=== PATIENT | male | born 1965 | race Caucasian/White ===

== ENCOUNTER 2020-01-29 12:49 | Emergency (ER) | payer BC, SELFPAY ==
[2020-01-29 13:10] VITALS: BP 108/68; PULSE 66; RESP 16; TEMP 36.7; O2SAT 97
--- NOTE | 2020-01-29 13:24 | ED.URI ---
HPI - URI/Sore Throat General Chief Complaint: Upper Respiratory Infection Stated Complaint: Cough Source: patient Mode of arrival: ambulatory Limitations: no limitations History of Present Illness HPI Narrative: 54 y.o. c/o cough x 10 days. Initially coughing frequently. Cough has decreased, now mostly at night, keeping him awake. It's unproductive. He denies prolonged coughing, inspiratory whoop, or vomiting post coughing. No stridor. The cough is unproductive, not associated with SOB or wheezing. He has no hx of asthma. About 10 years ago Ernesto had episodes of coughing which were associated with his throat closing up and inability to breath for about 30 seconds followed by slowly regaining his ability to breath. This has not recently occurred put pt. is concerned about it. Wondering if he needs an X ray. Type 2 insulin dependent diabetes. B.S. have been higher recently, but less than 220. Related Data Home Medications Medication Instructions Recorded Confirmed insulin glargine U-300 conc 300 28 unit SUB-Q DAILY ml 11/08/19 01/29/20 unit/mL (1.5 mL) subcutaneous pen insulin glulisine U-100 100 5 unit SUB-Q .5XPERDAYWITHMEALS ml 11/08/19 01/29/20 unit/mL subcutaneous solution Allergies Allergy/AdvReac Type Severity Reaction Status Date / Time Penicillins Allergy Intermediate Unknown Verified 11/08/19 10:09 prednisone Allergy Intermediate Unknown Verified 11/08/19 10:09 Review of Systems Constitutional: Constitutional: Reports no additional constitutional complaints and Denies body ache(s) ENT: Denies sinus pain Cardiovascular: Cardiovascular: Denies chest pain Respiratory: Respiratory: Reports no additional respiratory complaints Gastrointestinal: Gastrointestinal: Reports no additional gastrointestinal complaints [facility] Past Medical History Medical History DM2 (diabetes mellitus, type 2) Surgical History Surgical History (Updated 11/08/19 @ 10:11 by Concha Velasquez) No history of previous surgery Family History Family History Father , Age 71 Leukemia Mother Lung cancer Social History Social History Smoking status: Never smoker Second hand tobacco smoke exposure: No Alcohol intake: never Exam Const: General: cooperative, no acute distress and other (Coughed <5 x while in the E.D. ) Nutritional Appearance: average body habitus and well nourished HENMT: General nose exam: Normal external nose present Face and sinus: sinuses nontender Mouth: Yes Normal oral and palatal mucosa present Throat: posterior oropharynx normal Neck: Neck: no lymphadenopathy Chest: Chest palpation & inspection: normal inspection of the chest Resp: Effort & Inspection: normal respiratory effort Auscultation: clear to auscultation bilaterally Course Course Emergency Course: URI discussed with pt. Pt encouraged to return if episodes of being unable to move air/ catch his breath. Vital Signs Vital signs: Vital Signs Temperature 36.7 C 01/29/20 13:10 Pulse Rate 66 01/29/20 13:10 Respiratory Rate 16 01/29/20 13:10 Blood Pressure 108/68 01/29/20 13:10 Pulse Oximetry 97 01/29/20 13:10 Temperature 36.7 C 01/29/20 13:10 Pulse Rate 66 01/29/20 13:10 Respiratory Rate 16 01/29/20 13:10 Blood Pressure 108/68 01/29/20 13:10 Pulse Oximetry 97 01/29/20 13:10 MDM - URI/Sore Throat MDM Narrative Medical decision making narrative: No typical symptoms of Pertussis. Will tx as viral bronchitis Differential Diagnosis Differential diagnosis: Likely bronchitis, influenza and other (gerd) Discharge Plan Discharge Clinical Impression: Bronchitis Patient Disposition: Home, Self-Care Condition: Stable Instructions: Acute Bronchitis (ED) Additional Instructions: See primary care c
== END 2020-01-29 13:54 | disposition home or self-care (01) ==
PROVIDERS: Emergency Provider Family Medicine
DX: J40 Bronchitis, not specified as acute or chronic (principal)
CPT/HCPCS: 99283

== ENCOUNTER → 2020-07-20 14:22 | Outpatient (CLI) | payer BC, SELFPAY ==
--- NOTE | ~2020-07-20 | MR_ITS ---
EXAMINATION: MR thoracic spine wo con DATE: 07/20/2020 15:34 INDICATION: Thoracic back pain. TECHNIQUE: Magnetic resonance imaging (MRI) of the thoracic spine was performed without intravenous c ontrast. Sagittal localizer T1-weighted FSE of the cervical spine was obtained. Thoracic spine sequen alec included sagittal T2-weighted FSE, sagittal T1-weighted FSE, sagittal STIR FSE, and axial T2-weig hted FSE. COMPARISON: None FINDINGS: Bone alignment is normal. There are Schmorl's nodes at multiple levels in lower thoracic sp ine. There is mildly decreased disc height from T6-T7 through T9-T10. At T5-T6, there is a right cent ral extrusion with mild central canal stenosis. At T6-T7, there is a right central extrusion with mil d central canal stenosis and ventral indentation of spinal cord. At T7-T8, there is a right central e xtrusion with mild central canal stenosis. At T9-T10, there is a central extrusion with mild central canal stenosis. At T11-T12, the disc is bulging with mild central canal stenosis. There is multilevel mild facet joint osteoarthritis. There is moderate right neural foraminal stenosis at T8-T9. The spi nal cord signal intensity is normal. There is a 5.8 cm cyst in right kidney. IMPRESSION: 1. Mild thoracic spondylosis. Reviewed, dictated and finalized at location A.
--- NOTE | ~2020-07-20 | MR_ITS ---
EXAMINATION: MR lumbar spine wo con DATE: 07/20/2020 15:40 INDICATION: Low back pain. TECHNIQUE: Magnetic resonance imaging (MRI) of the lumbar spine was performed without intravenous con trast. Sequences included sagittal T2-weighted FSE, sagittal T2-weighted FS FSE, sagittal T1-weighted FSE, and axial T2-weighted FSE. COMPARISON: None FINDINGS: There is 4 degrees levocurvature of lumbar spine. Vertebral body heights are normal. There is mildly decreased disc height at L2-L3. The distal spinal cord signal intensity is normal. The conu s medullaris is at T12-L1. There is a 5.8 cm cyst in right kidney. The following disc levels are spec ifically discussed: L1-L2: The disc does not extend beyond the endplate margin. There is mild bilateral facet joint osteo arthritis. There is no neural foraminal stenosis. There is no central canal stenosis. L2-L3: The disc is bulging. There is mild bilateral facet joint osteoarthritis. There is moderate rig ht and mild left neural foraminal stenosis. There is mild central canal stenosis. L3-L4: The disc is bulging. There is mild bilateral facet joint osteoarthritis. There is mild bilater al neural foraminal stenosis. There is mild central canal stenosis. L4-L5: The disc is bulging and has an annular fissure. There is mild bilateral facet joint osteoarthr itis. There is moderate bilateral neural foraminal stenosis. There is mild central canal stenosis. L5-S1: The disc is bulging and has an annular fissure. There is mild bilateral facet joint osteoarthr itis. There is mild bilateral neural foraminal stenosis. There is mild central canal stenosis. IMPRESSION: 1. Moderate lumbar spondylosis. Reviewed, dictated and finalized at location A.
== END ==
DX: M54.5 Low back pain (principal); M47.814 Spondylosis without myelopathy or radiculopathy, thoracic region; M47.816 Spondylosis without myelopathy or radiculopathy, lumbar region
CPT/HCPCS: 72146; 72148

== ENCOUNTER 2020-11-08 13:32 | Outpatient (CLI) | payer BC, SELFPAY ==
[2020-11-08 13:44] LABS: Basophils Absolute Auto 0.07 K/mm3 (0.00-0.10); Eosinophils Absolute Auto 0.17 K/mm3 (0.02-0.50); Eosinophils Percent Auto 2.5 % (1.0-6.0); Hematocrit 40.2 % (40.0-54.0); Hemoglobin 13.3 g/dL (14.0-18.0); Immature Granulocyte Absolute 0.02 K/mm3 (0.00-0.00); Immature Granulocyte Percent A 0.3 % (0.0-0.0); Lymphocytes Absolute Auto 1.59 K/mm3 (1.10-4.50); Lymphocytes Percent Auto 23.8 % (18.0-42.0); Mean Corpuscular HGB Conc 33.1 g/dL (32.0-36.0); Mean Corpuscular Hemoglobin 29.6 pg (27.0-31.0); Mean Corpuscular Volume 89.5 fL (78.0-102.0); Monocytes Percent Auto 7.5 % (2.0-11.0); Neutrophils Absolute Auto 4.3 K/mm3 (1.7-7.2); Neutrophils Percent Auto 64.9 % (50.0-70.0); Platelet Count Result 233 K/mm3 (150-420); Red Blood Count 4.49 M/mm3 (4.70-6.10); Red Cell Distribution Width 11.6 % (11.6-14.4); White Blood Count 6.7 K/mm3 (4.8-10.8)
== END 2020-11-08 13:33 | disposition home or self-care (01) ==
DX: R21 Rash and other nonspecific skin eruption (principal)
CPT/HCPCS: 36415; 85025

== ENCOUNTER 2020-12-18 08:51 | Outpatient (CLI) | payer BC, SELFPAY ==
[2020-12-18 10:24] LABS: Alanine Aminotransferase 28 U/L (16-63); Albumin Level 3.8 g/dL (3.4-5.0); Alkaline Phosphatase 59 U/L (46-116); Anion Gap 8 mmol/L (8-16); Aspartate Amino Transferase 20 U/L (15-37); Bilirubin,Total 0.5 mg/dL (0.00-1.00); Blood Urea Nitrogen 19 mg/dL (7-18); Calcium 8.6 mg/dL (8.5-10.1); Carbon Dioxide 30 mmol/L (21-32); Chloride 103 mmol/L (98-108); Cholesterol 301 mg/dL (0-200); Estimated Glomerular Filt Rate > 60; Free T4 Free Thyroxine 0.91 ng/dL (0.76-1.46); Glucose 132 mg/dL (70-99); HDL Direct 76 mg/dL (40-60); Iron 81 ug/dL (65-175); LDL Cholesterol Calculated 209 mg/dL (<130); Osmolality Calculated 296 mOsm/kg (285-295); Percent Iron Saturation 35 % (12-57); Potassium 4.3 mmol/L (3.5-5.1); Prostate Specific Antigen 0.8 ng/mL (< OR = 4.0); Sodium 141 mmol/L (136-145); Triglycerides 78 mg/dL (0-150); Vitamin B12 1170 pg/mL (193-986)
[2020-12-20 12:43] LABS: Vitamin D 25 Hydroxy 21 ng/mL (30-100)
[2020-12-20 21:27] LABS: Triiodothryronine T3 Uptake 31 % (22-35)
[2020-12-22 10:15] LABS: Testosterone Total 869 ng/dL (250-1100)
== END 2020-12-18 08:52 | disposition home or self-care (01) ==
LOC: CHSLAB 08:53
PROVIDERS: PCP Internal Medicine; Visit Provider Internal Medicine
DX: D64.9 Anemia, unspecified (principal); R53.83 Other fatigue; Z12.5 Encounter for screening for malignant neoplasm of prostate; E11.9 Type 2 diabetes mellitus without complications; Z13.21 Encounter for screening for nutritional disorder; E78.5 Hyperlipidemia, unspecified
CPT/HCPCS: 36415; 80053; 80061; 82306; 82607; 83540; 83550; 84153; 84403; 84439; 84443; 84479; G0103

== ENCOUNTER 2021-01-22 07:55 | Outpatient (CLI) | payer BC, SELFPAY ==
[2021-01-22 08:09] LABS: Basophils Absolute Auto 0.07 K/mm3 (0.00-0.10); Basophils Percent Auto 1.3 % (0.0-1.0); Eosinophils Percent Auto 3.7 % (1.0-6.0); Hematocrit 40.6 % (40.0-54.0); Hemoglobin 13.6 g/dL (14.0-18.0); Immature Granulocyte Absolute 0.01 K/mm3 (0.00-0.00); Immature Granulocyte Percent A 0.2 % (0.0-0.0); Lymphocytes Absolute Auto 1.04 K/mm3 (1.10-4.50); Lymphocytes Percent Auto 19.1 % (18.0-42.0); Mean Corpuscular HGB Conc 33.5 g/dL (32.0-36.0); Mean Corpuscular Hemoglobin 29.8 pg (27.0-31.0); Mean Platelet Volume 10.2 fl (8.7-11.0); Monocytes Absolute Auto 0.55 K/mm3 (0.10-0.90); Monocytes Percent Auto 10.1 % (2.0-11.0); Neutrophils Absolute Auto 3.6 K/mm3 (1.7-7.2); Neutrophils Percent Auto 65.6 % (50.0-70.0); Platelet Count Result 253 K/mm3 (150-420); Red Blood Count 4.56 M/mm3 (4.70-6.10); Red Cell Distribution Width 11.8 % (11.6-14.4); White Blood Count 5.4 K/mm3 (4.8-10.8)
[2021-01-22 09:07] LABS: Alanine Aminotransferase 28 U/L (16-63); Albumin Level 3.8 g/dL (3.4-5.0); Alkaline Phosphatase 60 U/L (46-116); Anion Gap 8 mmol/L (8-16); Aspartate Amino Transferase 19 U/L (15-37); Bilirubin,Total 0.6 mg/dL (0.00-1.00); Blood Urea Nitrogen 19 mg/dL (7-18); Calcium 9.1 mg/dL (8.5-10.1); Carbon Dioxide 29 mmol/L (21-32); Chloride 100 mmol/L (98-108); Estimated Glomerular Filt Rate 50; Ferritin 238 ng/mL (26-388); Folic Acid 11.3 ng/mL (8.6->20); Glucose 179 mg/dL (70-99); Iron 76 ug/dL (65-175); Lactate Dehydrogenase 162 U/L (85-227); Osmolality Calculated 290 mOsm/kg (285-295); Percent Iron Saturation 40 % (12-57); Potassium 4.3 mmol/L (3.5-5.1); Sodium 137 mmol/L (136-145); Vitamin B12 1258 pg/mL (193-986)
[2021-01-26 11:34] LABS: Methylmalonic Acid 169 nmol/L (87-318)
== END 2021-01-22 07:56 | disposition home or self-care (01) ==
LOC: CHSLAB 07:57
PROVIDERS: PCP Internal Medicine; Visit Provider Internal Medicine Hematology & Oncology
DX: D64.9 Anemia, unspecified (principal)
CPT/HCPCS: 36415; 80053; 82607; 82728; 82746; 83540; 83550; 83615; 83921; 85025

== ENCOUNTER 2021-03-14 08:45 | Outpatient (CLI) | payer BC, SELFPAY ==
[2021-03-14 12:46] LABS: Immunoglobulin A 501 mg/dL (70-400); Immunoglobulin G 1078 mg/dL (700-1600); Immunoglobulin M 48 mg/dL (40-230)
[2021-03-20 13:49] LABS: BCR/abl Prior Result Not Given
[2021-03-20 14:41] LABS: BCR/abl P190 Not Detected; BCR/abl P210 Not Detected
[2021-03-20 14:42] LABS: BCR/abl P190 Chg YES; BCR/abl P210 Chg YES
== END 2021-03-14 08:46 | disposition home or self-care (01) ==
PROVIDERS: PCP Internal Medicine; Visit Provider Internal Medicine Hematology & Oncology
DX: R74.8 Abnormal levels of other serum enzymes (principal); D72.824 Basophilia; D64.9 Anemia, unspecified
CPT/HCPCS: 36415; 81206; 81207; 82784; 88184

== ENCOUNTER 2021-04-02 17:21 | Outpatient (CLI) | payer BC, SELFPAY | END 2021-04-02 17:22 | disposition home or self-care (01) | LOC: CHSLAB 17:23 | PROVIDERS: Visit Provider Internal Medicine Hematology & Oncology | DX: D64.9 Anemia, unspecified (principal) | CPT/HCPCS: 36415; 82180 ==

== ENCOUNTER 2022-01-21 15:28 | Outpatient (CLI) | payer BC, SELFPAY ==
[2022-01-21 15:42] LABS: Basophils Absolute Auto 0.1 K/mm3 (0.0-0.1); Basophils Percent Auto 1.4 % (0.2-1.2); Eosinophils Absolute Auto 0.1 K/mm3 (0-0.3); Eosinophils Percent Auto 2.3 % (0-4.4); Hematocrit 42.2 % (42.0-52.0); Hemoglobin 13.6 g/dL (14.0-18.0); Immature Granulocyte Absolute 0.02 K/mm3 (0.00-0.031); Immature Granulocyte Percent A 0.4 % (0-0.5); Lymphocytes Absolute Auto 1.39 K/mm3 (0.9-3.2); Lymphocytes Percent Auto 24.8 % (18.3-44.2); Mean Corpuscular HGB Conc 32.2 g/dl (32-36); Mean Corpuscular Hemoglobin 29.9 pg (26-34); Mean Corpuscular Volume 92.7 fl (80-100); Mean Platelet Volume 9.9 fl (7.4-10.4); Monocytes Absolute Auto 0.5 K/mm3 (0.1-0.6); Monocytes Percent Auto 8.6 % (2.6-8.5); Neutrophils Absolute Auto 3.5 K/mm3 (1.3-6.7); Neutrophils Percent Auto 62.5 % (45.5-73.1); Platelet Count Result 271 k/mm3 (150-375); Red Blood Count 4.55 M/mm3 (4.6-6.20); Red Cell Distribution Width 11.9 % (11.5-14.5); White Blood Count 5.6 K/mm3 (4.5-10.0)
[2022-01-21 15:46] LABS: Blood Urea Nitrogen 21 mg/dL (8-26); Carbon Dioxide 31 mmol/L (22-30); Chloride 99 mmol/L (98-109); Estimated Glomerular Filt Rate 52; Glucose 156 mg/dL (70-105); Sodium 139 mmol/L (138-146)
[2022-01-21 17:00] LABS: Alanine Aminotransferase 22 U/L (4-50); Albumin Level 4.4 g/dL (3.5-5.1); Alkaline Phosphatase 67 U/L (38-126); Anion Gap 6 mmol/L (8-16); Aspartate Amino Transferase 33 U/L (17-59); Bilirubin,Total 0.4 mg/dL (0.2-1.3); Blood Urea Nitrogen 21 mg/dL (9-20); Calcium 9.1 mg/dL (8.4-10.2); Carbon Dioxide 29 mmol/L (22-30); Chloride 101 mmol/L (98-107); Estimated Glomerular Filt Rate > 60; Glucose 160 mg/dL (65-110); Sodium 136 mmol/L (137-145)
[2022-01-21 18:08] LABS: Folic Acid 8.1 ng/mL (2.76->20)
== END 2022-01-21 15:29 | disposition home or self-care (01) ==
LOC: ANHLAB 15:30
PROVIDERS: PCP Internal Medicine; Visit Provider Internal Medicine Hematology & Oncology
DX: D75.838 Other thrombocytosis (principal); K64.9 Unspecified hemorrhoids; R74.8 Abnormal levels of other serum enzymes
CPT/HCPCS: 36415; 80053; 82607; 82746; 85025

== ENCOUNTER 2022-01-23 08:11 | Outpatient (CLI) | payer BC, SELFPAY ==
[2022-01-23 09:25] LABS: Free T3 2.13 pg/mL (2.18-3.98); Free T4 Free Thyroxine 0.94 ng/dL (0.76-1.46); Thyroid Stimulating Hormone 1.04 uIU/mL (0.36-3.74)
[2022-01-27 13:42] LABS: Testosterone Free 100.5 pg/mL (35.0-155.0); Testosterone Total 723 ng/dL (250-1100)
== END 2022-01-23 08:12 | disposition home or self-care (01) ==
LOC: CHSLAB 08:16
PROVIDERS: PCP Internal Medicine; Visit Provider Internal Medicine Hematology & Oncology
DX: R53.83 Other fatigue (principal)
CPT/HCPCS: 36415; 84402; 84403; 84439; 84443; 84481

== ENCOUNTER 2022-05-29 09:52 | Emergency (ER) | payer BC, SELFPAY ==
[2022-05-29 10:05] VITALS: BP 117/73; PULSE 88; RESP 16; TEMP 36.6; O2SAT 97
--- NOTE | 2022-05-29 10:15 | PC.NURSE ---
during triage patient states he is here for cough syrup with codeine patient is educated that that is a controlled substance and that is doctors discretion on if he would prescribe medication or not. erp is notified of patients request.
--- NOTE | 2022-05-29 10:23 | ED.GENADULT ---
HPI - General Adult General Chief complaint: Upper Respiratory Infection Stated complaint: cough/unable to sleep History of Present Illness HPI narrative: This is a 60-year-old male with history of diabetes presents to ED with a cough and sore throat x1 week. Patient states the cough has been keeping him up at night and now he is not tired for work. The patient was brisk codeine 1 year ago for his cough he thought that was very effective. He is requesting that again today. He has tried multiple other qnon-amh-trzyvqk medications at home including Nyquil, Tylenol, and throat coat without relief. The patient denies systemic signs of illness this is fever, chills, nausea vomiting or diarrhea. He says that his blood glucose has been running higher since the illnesses started. He denies chest pain, difficulty breathing, productive cough or abdominal pain. The patient does not believe that any other medication besides ulcer with codeine will work. Related Data Home Medications Medication Instructions Recorded Confirmed insulin glulisine U-100 100 30 unit subcut .5XPERDAYWITHMEALS 12/11/20 05/29/22 unit/mL subcutaneous solution (Apidra U-100 Insulin) insulin lispro 100 unit/mL See Rx Instructions .Route .COMPLEX 05/29/22 05/29/22 subcutaneous pen (Humalog KwikPen (U-100) Insulin) Allergies Allergy/AdvReac Type Severity Reaction Status Date / Time Penicillins Allergy Intermediate Unknown Verified 05/29/22 10:10 prednisone Allergy Intermediate Unknown Verified 05/29/22 10:10 Review of Systems Constitutional: Constitutional: Denies fatigue Eyes: Eyes: Denies no additional eye complaints ENT: Reports sore throat Cardiovascular: Cardiovascular: Denies chest pain Respiratory: Respiratory: Reports cough Gastrointestinal: Gastrointestinal: Denies abdominal pain Genitourinary: Genitourinary: Denies hematuria Musculoskeletal: Musculoskeletal: Denies back pain Integumentary/Breasts: Skin/Breast: Denies rash Neurologic: Denies confusion Psychiatric: Psychiatric: Denies anxiety Endocrine: Endocrine: Reports fatigue Hematologic/Lymphatic: Hematologic/Lymphatic: Denies easy bleeding Allergic/Immunologic: Allergic/Immunologic: Denies throat swelling PMFSH Past Medical History Medical History Acute middle ear effusion Anemia Anxiety Dermatitis DM2 (diabetes mellitus, type 2) Fatigue Paresthesia of hand, bilateral Renal cyst Right shoulder pain Rotator cuff tendonitis Vitamin D deficiency Surgical History Surgical History No history of previous surgery Family History Family History Father , Age 71 Leukemia Mother Lung cancer Social History Social History Smoking status: Never smoker Second hand tobacco smoke exposure: No Alcohol intake: never Exam Const: General: healthy appearing, no acute distress and alert HENMT: Ears: TM's normal bilaterally General nose exam: Normal nares present Face and sinus: sinuses nontender Mouth: Yes Normal oral and palatal mucosa present Throat: posterior oropharynx normal Other: No evidence of erythema posterior pharynx. No exudates. Eyes: Conjunctivae: conjunctivae normal Neck: Neck: normal visual inspection Chest: Chest palpation & inspection: normal inspection of the chest Resp: Effort & Inspection: normal respiratory effort, not labored, no retractions, not tachypneic and no use of accessory muscles Auscultation: clear to auscultation bilaterally Cardio: Rate: regular rate GI: GI Palp: Yes Soft to palpation, No Tenderness to palpation present (GI) and No Guarding due to palpation present (GI) Skin: General skin exam: normal color Neuro: General: patient oriented x3 and moves all extremitie
--- NOTE | 2022-05-29 10:27 | PC.NURSE ---
patient refused blood glucose check, erp made aware
[2022-05-29 10:50] VITALS: BP 117/73; PULSE 88; RESP 16; TEMP 36.6; O2SAT 97
== END 2022-05-29 10:54 | disposition home or self-care (01) ==
PROVIDERS: Emergency Provider Emergency Medicine; PCP Internal Medicine
DX: R05.9 Cough, unspecified (principal); J06.9 Acute upper respiratory infection, unspecified; E11.9 Type 2 diabetes mellitus without complications; E55.9 Vitamin D deficiency, unspecified; F41.9 Anxiety disorder, unspecified
CPT/HCPCS: 99283

== ENCOUNTER → 2022-06-05 15:06 | Outpatient (CLI) | payer BC, SELFPAY ==
--- NOTE | ~2022-06-05 | XR_ITS ---
EXAMINATION: XR chest 2V 06/05/2022 15:57 INDICATION: Chronic cough PROCEDURE: 2 view chest COMPARISON: 04/23/2007 FINDINGS: The lungs are clear. The cardiomediastinal silhouette is within normal limits. There are no pleural effusions. There is no pneumothorax suspected. IMPRESSION: 1: NO ACUTE CARDIOPULMONARY DISEASE. Reviewed, dictated and finalized at location A.
== END ==
PROVIDERS: PCP Internal Medicine; Visit Provider Nurse Practitioner
DX: R05.3 Chronic cough (principal)
CPT/HCPCS: 71046

== ENCOUNTER → 2022-08-29 10:15 | Outpatient (CLI) | payer BC, SELFPAY ==
--- NOTE | ~2022-08-29 | MR_ITS ---
EXAMINATION: MR cervical spine wo con DATE: 08/29/2022 10:58 INDICATION: Neck pain. TECHNIQUE: Magnetic resonance imaging (MRI) of the cervical spine was performed without intravenous c ontrast. Sequences included sagittal T2-weighted FSE, sagittal T2-weighted FS FSE, sagittal T1-weight ed FSE, axial MERGE, and axial T2-weighted FSE. COMPARISON: None FINDINGS: There is 5 degrees dextrocurvature of cervical spine. Vertebral body heights are normal. Th ere is mildly decreased disc height at C4-C5 and C5-C6 and severely decreased disc height at C6-C7. T he spinal cord signal intensity is normal. The following disc levels are specifically discussed: C2-C3: The disc does not extend beyond the endplate margin. There is mild bilateral uncovertebral sharon nt osteoarthritis. There is mild bilateral facet joint osteoarthritis. There is mild left neural fora frieda stenosis. There is no central canal stenosis. C3-C4: The disc does not extend beyond the endplate margin. There is mild right and moderate left unc overtebral joint osteoarthritis. There is mild bilateral facet joint osteoarthritis. There is mild bi lateral neural foraminal stenosis. There is no central canal stenosis. C4-C5: The disc is bulging. There is moderate bilateral uncovertebral joint osteoarthritis. There is moderate right and mild left facet joint osteoarthritis. There is moderate right and mild left neural foraminal stenosis. There is mild central canal stenosis. C5-C6: The disc is bulging. There is severe bilateral uncovertebral joint osteoarthritis. There is se nette right and moderate left facet joint osteoarthritis. There is mild bilateral neural foraminal venkat nosis. There is mild central canal stenosis. C6-C7: The disc is bulging. There is severe bilateral uncovertebral joint osteoarthritis. There is mi ld bilateral facet joint osteoarthritis. There is mild bilateral neural foraminal stenosis. There is no central canal stenosis. C7-T1: The disc does not extend beyond the endplate margin. There is mild bilateral uncovertebral sharon nt osteoarthritis. There is mild bilateral facet joint osteoarthritis. There is no neural foraminal s tenosis. There is no central canal stenosis. IMPRESSION: 1. Severe cervical spondylosis. Reviewed, dictated and finalized at location A.
== END ==
PROVIDERS: PCP Internal Medicine; Visit Provider Nurse Practitioner Family
DX: M47.892 Other spondylosis, cervical region (principal)
CPT/HCPCS: 72141

== ENCOUNTER 2022-10-18 09:34 | Outpatient (CLI) | payer BC, SELFPAY ==
[2022-10-18 10:39] LABS: Alanine Aminotransferase 37 U/L (16-63); Albumin Level 3.6 g/dL (3.4-5.0); Alkaline Phosphatase 68 U/L (46-116); Anion Gap 8 mmol/L (8-16); Aspartate Amino Transferase 19 U/L (15-37); Bilirubin,Total 0.5 mg/dL (0.00-1.00); Blood Urea Nitrogen 21 mg/dL (7-18); Calcium 8.7 mg/dL (8.5-10.1); Carbon Dioxide 29 mmol/L (21-32); Chloride 104 mmol/L (98-108); Cholesterol 133 mg/dL (0-200); Estimated Glomerular Filt Rate 57; Glucose 168 mg/dL (70-99); HDL Direct 51 mg/dL (40-60); LDL Cholesterol Calculated 68 mg/dL (<130); Osmolality Calculated 299 mOsm/kg (285-295); Potassium 4.3 mmol/L (3.5-5.1); Sodium 141 mmol/L (136-145); Thyroid Stimulating Hormone 0.83 uIU/mL (0.36-3.74); Total Protein 6.6 g/dL (6.4-8.2); Triglycerides 72 mg/dL (0-150)
[2022-10-22 18:11] LABS: Vitamin D 25 Hydroxy 45 ng/mL (30-100)
== END 2022-10-18 09:35 | disposition home or self-care (01) ==
LOC: CHSLAB 09:36
PROVIDERS: PCP Internal Medicine; Visit Provider Internal Medicine Endocrinology, Diabetes & Metabolism
DX: E10.65 Type 1 diabetes mellitus with hyperglycemia (principal)
CPT/HCPCS: 36415; 80053; 80061; 82306; 84443

== ENCOUNTER 2023-07-06 16:39 | Outpatient (CLI) | payer BC, SELFPAY ==
--- NOTE | ~2023-07-06 | MR_ITS ---
EXAMINATION: MR shoulder RT wo con DATE: 07/06/2023 17:31 INDICATION: Right shoulder pain. TECHNIQUE: Magnetic resonance imaging (MRI) of the right shoulder was performed without intravenous c ontrast. Sequences included axial PD-weighted FS FSE, coronal oblique PD-weighted FS FSE and T2-weigh [place] FS FSE, and sagittal oblique T2-weighted FS FSE and T1-weighted FSE. COMPARISON: Right shoulder radiographs 06/24/2023 FINDINGS: Coracoacromial arch: The acromion undersurface is curved in morphology (type II). There is severe acromioclavicular joint osteoarthritic including inferiorly directed osteophytes. There is mild subacromial/subdeltoid bursit is. Rotator cuff: There is mild supraspinatus and infraspinatus tendinopathy. There is mild teres minor tendinopathy. T here is mild subscapularis tendinopathy. No tear. There is no asymmetric fatty atrophy of the rotator cuff muscle bellies. Biceps tendon and glenoid labrum: Biceps tendon is in bicipital groove. Intra-articular biceps tendon is normal. The glenoid labrum is intact. Fluid: There is a small glenohumeral joint effusion. Bones/cartilage: Glenoid cartilage is normal. Humeral head cartilage is normal. IMPRESSION: 1. Mild rotator cuff tendinopathy. No tear. 2. Severe acromioclavicular joint osteoarthritis. 3. Mild subacromial/subdeltoid bursitis. 4. Small glenohumeral joint effusion. Reviewed, dictated and finalized at location A.
== END 2023-07-06 16:40 | disposition home or self-care (01) ==
LOC: ANHIMG 16:42
PROVIDERS: PCP Family Medicine; Visit Provider Orthopaedic Surgery
DX: M19.011 Primary osteoarthritis, right shoulder (principal); M25.411 Effusion, right shoulder; M75.51 Bursitis of right shoulder
CPT/HCPCS: 73221

== ENCOUNTER 2024-08-16 10:08 | Outpatient (CLI) | payer BC, SELFPAY ==
[2024-08-16 10:38] LABS: Hematocrit 41.5 % (40.0-54.0); Mean Corpuscular HGB Conc 33.7 g/dL (32-36); Mean Corpuscular Hemoglobin 30.3 pg (27.0-31.0); Mean Corpuscular Volume 89.8 fL (78.0-102.0); Mean Platelet Volume 10.2 fl (8.7-11.0); Platelet Count Result 238 K/mm3 (150-420); Red Blood Count 4.62 M/mm3 (4.70-6.10); Red Cell Distribution Width 11.9 % (11.6-14.4)
[2024-08-16 10:46] LABS: Add Urine Microscopic? NO; Appearance Urine Clear (Clear); Bilirubin Urine Negative (Negative); Blood Urine Negative (Negative); Color Urine Light Yellow (Yellow); Glucose Urine UA Negative (Negative); Ketones Urine Negative (Negative); Leukocyte Esterase Ur Negative (Negative); Nitrate Urine Negative (Negative); Protein Urine Negative (Negative); Specific Grav Ur 1.015 (1.010-1.020); Urobilinogen Urine 0.2 mg/dL (0.2-1.0)
[2024-08-16 10:49] LABS: Hemoglobin A1C 7.4 % (<5.7)
[2024-08-16 10:55] LABS: Creatinine Urine 107.13 mg/dL (40-278); MALB Creatinine Ratio 12.1 mg/g (0-30); Microalbumin Urine Random < 13.0 mg/L
[2024-08-16 11:48] LABS: Alanine Aminotransferase 28 U/L (16-63); Albumin Level 3.8 g/dL (3.4-5.0); Alkaline Phosphatase 67 U/L (46-116); Anion Gap 4 mmol/L (4-12); Aspartate Amino Transferase 17 U/L (15-37); Bilirubin,Total 0.6 mg/dL (0.00-1.00); Blood Urea Nitrogen 20 mg/dL (7-18); Calcium 9.2 mg/dL (8.5-10.1); Carbon Dioxide 31 mmol/L (21-32); Chloride 103 mmol/L (98-108); Cholesterol 249 mg/dL (0-200); Estimated Glomerular Filt Rate > 60; Ferritin 259 ng/mL (26-388); Free T3 2.58 pg/mL (2.18-3.98); Free T4 Free Thyroxine 0.91 ng/dL (0.76-1.46); Glucose 142 mg/dL (70-99); HDL Direct 77 mg/dL (40-60); Iron 76 ug/dL (65-175); LDL Cholesterol Calculated 158 mg/dL (<130); Osmolality Calculated 290 mOsm/kg (285-295); Percent Iron Saturation 33 % (12-57); Potassium 4.6 mmol/L (3.5-5.1); Prostate Specific Antigen 0.9 ng/mL (< OR = 4.0); Sodium 138 mmol/L (136-145); Thyroid Stimulating Hormone 0.99 uIU/mL (0.36-3.74); Total Protein 7.2 g/dL (6.4-8.2); Triglycerides 69 mg/dL (0-150); Vitamin B12 970 pg/mL (193-986)
[2024-08-16 11:49] LABS: CRP < 0.5 mg/dL (0.0-0.9)
[2024-08-17 15:49] LABS: Parathyroid Intact 27 pg/mL (16-77)
[2024-08-18 08:08] LABS: Vitamin D 25 Hydroxy 34 ng/mL (30-100)
[2024-08-18 20:04] LABS: Red Blood Cell Folate 608 ng/mL RBC (>280)
[2024-08-19 16:03] LABS: Anti Cyclic Citrullinated Pept <16 UNITS
[2024-08-20 12:57] LABS: Methylmalonic Acid 148 nmol/L (69-390)
[2024-08-20 14:49] LABS: Vitamin D 1,25 (OH)2 Total 26 pg/mL (18-72); Vitamin D2 1,25 (OH)2 <8 pg/mL; Vitamin D3 1,25 (OH)2 26 pg/mL
[2024-08-24 20:04] LABS: Glutamic acid decarboxylase AA 6 IU/mL (<5)
== END 2024-08-16 10:09 | disposition home or self-care (01) ==
PROVIDERS: PCP Internal Medicine; Visit Provider Internal Medicine
DX: Z00.00 Encounter for general adult medical examination without abnormal findings (principal); E11.9 Type 2 diabetes mellitus without complications; D64.9 Anemia, unspecified; M25.50 Pain in unspecified joint; E55.9 Vitamin D deficiency, unspecified
CPT/HCPCS: 36415; 80053; 80061; 81003; 82043; 82306; 82607; 82652; 82728; 82747; 83036; 83540; 83550; 83921; 83970; 84153; 84439; 84443; 84481; 85027; 86038; 86039; 86140; 86200; G0103

== ENCOUNTER 2025-07-03 15:07 | Outpatient (CLI) | payer BC, SELFPAY ==
--- NOTE | ~2025-07-03 | XR_ITS ---
CHEST RADIOGRAPH, PA AND LATERAL CLINICAL HISTORY: dyspnea of exertion . COMPARISON: 06/05/2022 TECHNIQUE: PA and lateral views of the chest. FINDINGS The cardiomediastinal silhouette is unremarkable. The lungs are clear. IMPRESSION: No focal infiltrate or effusion. Reviewed, dictated and finalized at location A.
[2025-07-03 15:32] LABS: Add Urine Microscopic? NO; Appearance Urine Clear (Clear); Glucose Urine UA Negative (Negative); Hematocrit 37.0 % (40.0-54.0); Hemoglobin 12.4 g/dL (14.0-18.0); Leukocyte Esterase Ur Negative (Negative); Mean Corpuscular HGB Conc 33.5 g/dL (32-36); Mean Corpuscular Hemoglobin 30.0 pg (27.0-31.0); Mean Corpuscular Volume 89.4 fL (78.0-102.0); Nitrate Urine Negative (Negative); Platelet Count Result 244 K/mm3 (150-420); Red Blood Count 4.14 M/mm3 (4.70-6.10); Specific Grav Ur 1.025 (1.010-1.020); White Blood Count 6.8 K/mm3 (4.8-10.8)
--- NOTE | 2025-07-03 15:36 | ECG_ITS ---
Test Date: 2025-07-03 15:45:48 Measurements Intervals [place] Rate: 61 P: -18 [place]: 200 QRS: 3 QRSD: 74 T: 6 QT: 371 QTc: 376 Interpretive Statements SINUS RHYTHM INFERIOR INFARCT, AGE INDETERMINATE BASELINE ARTIFACT- II, III, AVF ABNORMAL ECG No previous ECG available for comparison Electronically Signed On 07-03-2025 16:37:14 CDT by Nehemias Collins D.O.
[2025-07-03 15:40] LABS: Alanine Aminotransferase 25 U/L (6-50); Albumin Level 4.4 g/dL (3.5-5.1); Alkaline Phosphatase 73 U/L (38-126); Anion Gap 8 mmol/L (4-12); Aspartate Amino Transferase 38 U/L (17-59); Bilirubin,Total 0.5 mg/dL (0.2-1.3); Blood Urea Nitrogen 27 mg/dL (9-20); CRP 0.6 mg/dL (<1.0); Calcium 9.6 mg/dL (8.4-10.2); Carbon Dioxide 24 mmol/L (22-30); Chloride 106 mmol/L (98-107); Estimated Glomerular Filt Rate 48; Glucose 208 mg/dL (65-110); Osmolality Calculated 297 mOsm/kg (285-295); Potassium 4.2 mmol/L (3.4-5.0); Sodium 138 mmol/L (137-145); Total Protein 7.3 g/dL (6.3-8.2)
[2025-07-03 15:46] LABS: NT Pro B Type Natriuretic Pept 67 pg/mL (19.9-100)
--- OUTSIDE RECORDS SUMMARY | 2025-07-03 15:58 | XMS_ITS | Encounter Summary ---
Author Organization [facility] Address [address] [place] [address] Care Team Providers Care School Guidance Counselor Name Role Phone Domo Tello DO Primary Care Provider [phone] Encounter Details Date Type Department Care Team (Latest Contact Info) Description 09/03/2006 Outpatient Historical HIS [facility] [place] [facility] Godfrey, Bonilla Medellin MD NO ADDRESS ON FILE DM w/o Complication Type I, Uncontrolled (Primary Dx) Social History Tobacco Use Types Packs/Day Years Used Date Smoking Tobacco: Never Assessed Sex and Gender Information Value Date Recorded Sex Assigned at Not on file 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 Gender Identity Not on file Sexual Orientation Not on file documented as of this encounter Plan of Treatment Not on file documented as of this encounter Procedures Procedure Name Priority Date/Time Associated Diagnosis Comments HEMOGLOBIN A1C Routine 09/03/2006 8:27 AM CDT documented in this encounter Results * (ABNORMAL) HEMOGLOBIN A1C (09/03/2006 8:27 AM CDT) HEMOGLOBIN A1C 6.6(H) 4.1 - 6.1 % of Hgb INTERFACE SYSTEM GLUCOSE, MEAN BLOOD 134 mg/dL INTERFACE SYSTEM 09/03/2006 8:27 AM CDT us Bonilla Godfrey MD CHEMISTRY ORDERABLES Final Resu lt INTERFACE SYSTEM Refer to clinic/hospital department documented in this encounter Visit Diagnoses Diagnosis Type I (juvenile type) diabetes mellitus without mention of complication, uncontrolled- Primary documented in this encounter Care Teams School Guidance Counselor Relationship Specialty Start Date End Date Domo Tello DO [address] [facility] [address] [facility] [address] [place] [address] PCP - General Internal Medicine 01/16/21 documented as of this encounter
--- OUTSIDE RECORDS SUMMARY | 2025-07-03 15:58 | XMS_ITS | Clinical Summary ---
Author Organization [facility] Address [address] [place] [address] Care Team Providers Care Churner Name Role Phone Dev Sage MD Primary Care Provider Source Comments [facility],non-owned Affiliates and Associated Physician Practices is amultiple site organization consisting of ambulatory clinics and hospital sitesin [place], [place], [place] and [place]. This disclosure is being madepursuant to the Care Everywhere program and may not contain all information available regarding this patient. Last updated 18.[facility] Allergies Active Allergy Reactions Criticality Noted Date Comments Penicillins Other,Rash Medium 08/26/2016 Reaction: Unknown, Prednisone Unknown 05/21/2020 Medications * Be aware that medications may not be up to date on this document. Alwaysverify current medications with the patient. 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 Gender Identity Not on file Sexual Orientation Not on file Last Filed Vital Signs Vital Sign Reading Time Taken Comments Blood Pressure 121/70 05/21/2020 2:15 PM CDT Pulse 73 05/21/2020 2:15 PM CDT Temperature - - Respiratory Rate - - Oxygen Saturation - - Inhaled Oxygen Concentration - - Weight 83.9 kg (185 lb) 05/21/2020 2:15 PM CDT Height 177.8 cm (5' 10) 05/21/2020 2:15 PM CDT Body Mass Index 26.54 05/21/2020 2:15 PM CDT Plan of Treatment Health Maintenance Due Date Last Done Comments COLOGUARD (AGES 45-75) - COL ON CA SCREENING 1963 COLON MONITORING 1963 COLONOSCOPY - COLON CA SCREENING 1963 CT COLONOGRAPHY - COLON CA SCREENING 1963 Colorectal Cancer Screening 1963 FIT - COLON CA SCREENING 1963 FLEX SIG - COLON CA SCREENING 1963 LIPID TESTING 1963 HIV SCREENING 1978 HEPATITIS C SCREENING 10/16/1981 DTAP/TDAP/TD VACCINES (1 - Tdap) 1982 PNEUMOCOCCAL VACCINE 50+ (1 of 1 - PCV) 2013 ZOSTER VACCINE (1 of 2) 2013 SCREENING FOR DIABETES 05/21/2020 COVID-19 VACCINE (1 - 2023-2 5 season) 2024 DEPRESSION SCREENING 11/16/2024 INFLUENZA VACCINE (#1) 2025 Respiratory Syncytial Virus (RSV) Vaccine Pt: or over 60 yrs (1 - 1-dose 75+ series) 2038 HEPATITIS B VACCINE Aged Out No longe r eligible based on patient's age to complete this topic HIB VACCINE Aged Out No longer eligi ble based on patient's age to complete this topic HPV VACCINE Aged Out No longer eligi ble based on patient's age to complete this topic MENINGOCOCCAL (Group B) VACC INE SHARED DECISION-MAKING Aged Out No longer eligibl e based on patient's age to complete this topic MENINGOCOCCAL GROUPS A/C/Y/W VACCINE Aged Out No longer eligible b ased on patient's age to complete this topic Insurance [employer] Care Teams Churner Relationship Specialty Start Date End Date Dev Sage MD [address] [place] [place] [address] PCP - General 05/17/20
--- OUTSIDE RECORDS SUMMARY | 2025-07-03 15:58 | XMS_ITS | Encounter Summary ---
Author Organization [employer] Address 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 Gender Identity Not on file Sexual Orientation Not on file documented as of this encounter Plan of Treatment Not on file documented as of this encounter Procedures Procedure Name Priority Date/Time Associated Diagnosis Comments CT ABDOMEN PELVIS W CONTRAST Routine 02/21/2008 8:06 PM CDT URINALYSIS W/REFLEX MICROSCOPIC Stat 02/21/2008 7:25 PM CDT CBC WITH DIFFERENTIAL Stat 02/21/2008 6:45 PM CDT C-REACTIVE PROTEIN Stat 02/21/2008 6: 45 PM CDT COMPREHENSIVE METABOLIC PANEL Stat 02/21/2008 6:45 PM CDT documented in this encounter Results * CT ABDOMEN PELVIS W CONTRAST (02/21/2008 8:06 PM CDT) Anatomical Region Laterality Modality Abdomen Other 02/21/2008 8:06 PM CDT Narrative 02/22/2008 9:37 AM CDT [facility] [address] [place], [place] [address] Admit Date: 02/21/2008 MAIN GAUTHIER Sex: M Admit Prov: ER, AUTHORIZED P Date: 1965 Primary Care Prov: ELIZ BOOTH CMRN: [id number] Room: ER-A SSN: [id number] IMAGING SERVICES Ordering Prov: N/A Accession Number: [id number] Interpretation CT ABDOMEN AND PELVIS WITH IV CONTRAST 02/21/2008 History: 42-year-old man with right lower quadrant abdominal pain Technique: Helical imaging of the abdomen and pelvis with intravenous contrast Comparisons: None Findings: Images through the lung bases demonstrate a 4 mm pulmonary nodule within the lingula anteriorly (image 1, series 2). The liver is unremarkable in appearance without intrahepatic biliary ductal dilatation. The gallbladder is present. There is a calcified pulmonary nodule in the left lower lobe. The spleen, pancreas and adrenal glands are unremarkable. Both kidneys enhance symmetrically and there is no hydronephrosis. There is a 3.9 x 3.8 cm low density lesion exophytically arising from the upper pole of the right kidney, most compatible with a cyst. No pathologically enlarged upper abdominal or retroperitoneal lymph nodes are seen. There is no pelvic lymphadenopathy. The appendix is unremarkable. There are a slightly increased number of mesenteric lymph nodes which is nonspecific. Impression: 1. No acute intra-abdominal/pelvic process identified 2. Slightly increased number of mesenteric lymph nodes, nonspecific. Consider follow up. 3. Right renal cyst. 4. 4 mm pulmonary nodule within the lingula anteriorly . Dictated by: MIROSLAVA PISANO 02/21/2008 20:45 Electronically signed by: MIROSLAVA PISANO 02/22/2008 09:37 Transcribed: 02/21/2008 20:54 AMK Procedure Note Provider, Historical - 02/22/2008 [place] [id number] [place], [place] [address] Admit Date: 02/21/2008 MAIN GAUTHIER Sex: M Admit Prov: ERIKA GOLDEN Date: 1965 Primary Care Prov: ELIZ BOOTH CMRN: [id number] Room: [facility] SSN: [id number] IMAGING SERVICES Ordering Prov: N/A Interpretation CT ABDOMEN AND PELVIS WITH IV CONTRAST 02/21/2008 History: 42-year-old man with right lower quadrant abdominal pain Technique: Helical imaging of the abdomen and pelvis withintravenous contrast Comparisons: None Findings: Images through the lung bases demonstrate a 4 mm pulmonarynodule within the lingula anteriorly (image 1, series 2). The liver is unremarkable in appearance without intrahepatic biliaryductal dilatation. The gallbladder is present. There is a calcifiedpulmonary nodule in the left lower lobe. The spleen, pancreas and adrenalglands are unremarkable. Both kidneys enhance symmetrically and there is no hydronephrosis. There is a 3.9 x 3.8 cm low density lesionexophytically arising from the upper pole of the right kidney, most compatible witha cyst. No pathologically enlarged upper abdominal or retroperitoneallymph nodes are seen. There is no pelvic lymphadenopathy. The appendix is unremarkable. There are a slightly increased number of mesentericlymph nodes which is nonspecific. Impression: 1. No acute intra-abdominal/pelvic process identified 2. Slightly increased number of mesenteric lymph nodes,nonspecific. Consider follow up. 3. Right renal cyst. 4. 4 mm pulmonary nodule within the lingula anteriorly . Dictated by: MIROSLAVA PISANO 02/21/2008 20:45 Electronically signed by: MIROSLAVA PISANO 02/22/2008 09:37 Transcribed: 02/21/2008 20:54 AMK Rav[address] DO [address] ORDERABLES Final Result * URINALYSIS (02/21/2008 7:25 PM CDT) CLARITY UA Clear Clear [facility] PROTEIN UA Negative Negative [facility] BILIRUBIN UA Negative Negative [facility] LEUKOCYTE ESTERASE UA Negative Negative [facility] SPECIFIC GRAVITY UA 1.005 1.001 - 1.035 [facility] BLOOD UA Negative Negative [facility] GLUCOSE UA Negative Negative [facility] COLOR UA Colorless [facility] NITRITE UA Negative Negative [facility] UROBILINOGEN UA <1 <=1 mg/dL [facility] PH UA 6.0 5.0 - 8.0 [facility] KETONES UA Negative Negative [facility] Urine specimen (specimen) 02/21/2008 7:25 PM CDT 02/21/2008 7:29 PM CDT Ravinder Knott DO URINE ORDERABLES Final Result Performing Organization Address [facility] Co de Phone Number [facility] [address] [facility] [address] [place], [place] [address] * C-REACTIVE PROTEIN (02/21/2008 6:45 PM CDT) Pathologist [facility] CRP 0.3 0.0 - 0.8 mg/dL [facility] Blood specimen (specimen) 02/21/2008 6:45 PM CDT 02/21/2008 6:51 PM CDT Ravinder Knott DO CHEMISTRY ORDERABLES Final Re sult Performing Organization Address [facility]/ZIP Co de Phone Number [facility] [address] [facility] [place] [address] * (ABNORMAL) COMPREHENSIVE METABOLIC PANEL (02/21/2008 6:45 PM CDT) ALKALINE PHOSPHATASE 65 40 - 129 U/L [facility] CO2 27 22 - 30 mmol/L [facility] BILIRUBIN TOTAL 0.3 0.2 - 1.0 mg/dL [facility] POTASSIUM 3.7 3.5 - 4.9 mmol/L [facility] TOTAL PROTEIN 7.8 6.3 - 8.6 g/dL [facility] GLUCOSE 117(H) 65 - 99 mg/dL [facility] AST 36 12 - 38 U/L [facility] BUN 17 6 - 20 mg/dL [facility] CALCIUM 8.9 8.4 - 10.2 mg/dL [facility] ALBUMIN 4.6 3.4 - 4.8 g/dL [facility] CHLORIDE 102 96 - 108 mmol/L [facility] CREATININE 1.13 0.67 - 1.17 mg/dL [facility] ALT 27 0 - 41 U/L [facility] SODIUM 140 135 - 145 mmol/L [facility] GFR, >60 >=60 mL/min/1. 7 sq meter [facility] GFR >60 >=60 mL/min/1. 7 sq meter [facility] Comment: Estimated GFR rate interpretative information for both Americans and non- Americans is available on the [facility] Intranet at: [email or web address] Select: Lab Policies and Procedures Select: Reference Ranges - GFR Blood specimen (specimen) 02/21/2008 6:45 PM CDT 02/21/2008 6:51 PM CDT us Ravinder Knott DO CHEMISTRY ORDERABLES Edited [facility] [address] [place] [address] * CBC WITH DIFFERENTIAL (02/21/2008 6:45 PM CDT) HEMOGLOBIN 14.1 13.6 - 16.5 g/dL [facility] RDW 12.3 11.5 - 14.5 % [facility] WBC 6.0 4.0 - 9.8 K/uL [facility] MCH 28.5 27.2 - 32.6 pg [facility] MPV 10.2 9.3 - 12.4 fL [facility] HEMATOCRIT 41.7 40.0 - 48.0 % [facility] RDW-STDEV 37.7 37.1 - 48.7 fL [facility] RBC 4.94 4.50 - 5.40 M/uL [facility] MCHC 33.8 31.5 - 35.5 % [facility] MCV 84.4 82.0 - 99.0 fL [facility] PLATELETS 255 140 - 350 K/uL [facility] LYMPHOCYTES 31 16 - 45 % [facility] LYMPHOCYTE ABSOLUTE 1.84 0.70 - 4.50 K/uL [facility] EOSINOPHIL ABSOLUTE 0.16 0.00 - 0.70 K/uL [facility] BASOPHILS 2 0 - 2 % [facility] MONOCYTES 6 3 - 13 % [facility] NEUTROPHILS 59 45 - 70 % [facility] NEUTROPHIL ABSOLUTE 3.51 1.90 - 7.00 K/uL [facility] EOSINOPHILS 3 0 - 7 % [facility] MONOCYTE ABSOLUTE 0.37 0.10 - 1.30 K/uL [facility] BASOPHILS ABSOLUTE 0.09 0.00 - 0.20 K/uL [facility] Blood specimen (specimen) 02/21/2008 6:45 PM CDT 02/21/2008 6:51 PM CDT Ravinder Knott DO HEMATOLOGY ORDERABLES Edited INTERFACE SYSTEM Refer to clinic/hospital department [facility] [address] [place] [address] documented in this encounter Visit Diagnoses Not on filedocumented in this encounter Care Teams Narrow Fabrics Weaver Relationship Specialty Start Date End Date Domo Tello DO [address] [facility] [address] [place] [address] PCP - General Internal Medicine 01/16/21 documented as of this encounter
--- OUTSIDE RECORDS SUMMARY | 2025-07-03 15:58 | XMS_ITS | Encounter Summary ---
Author Organization [employer] Address 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
--- OUTSIDE RECORDS SUMMARY | 2025-07-03 15:58 | XMS_ITS | Encounter Summary ---
Author Organization [facility] Address [address] [place] [address] Care Team Providers Care Post Production Assistant Name Role Phone Dev Sage MD Primary Care Provider Encounter Details Date Type Department Care Team (Late st Contact Info) Description 04/10/2021 Lab Requisition [facility] [address] [facility], [place] [id number] Shane Mendoza MD [address] [facility] [place] [address] Social History Tobacco Use Types Packs/Day Years Used Date Smoking Tobacco: Never Smokeless Tobacco: Never Alcohol Use Standard Drinks/Week Comments Not Currently 0 (1 standard drink = 0.6 oz pur e alcohol) Sex and Gender Information Value Date Recorded Sex Assigned at Not on file 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 Gender Identity Not on file Sexual Orientation Not on file documented as of this encounter Plan of Treatment Not on file documented as of this encounter Procedures Procedure Name Priority Date/Time Associated Diagnosis Comments DERMATOPATHOLOGY Routine 04/09/2021 3:33 AM CDT documented in this encounter Results * DERMATOPATHOLOGY (04/09/2021 3:33 AM CDT) Case Report Dermatopathology Report Case: [id number] Authorizing Provider: Shane Mendoza MD Collected: 04/09/2021 03:33 AM Ordering Location: [facility] Received: 04/10/2021 07:48 AM Pathologist: Waleska Ramirez MD Specimen: Skin, right post thigh 4:55 PM T DERMATOPATHOLOGY LABORATORY Final Diagnosis Specimen A. SKIN, right post thigh: FOCAL SPONGIOTIC DERMATITIS WITH EOSINOPHILS (L30.8) EPIDERMAL NECROSIS SUGGESTIVE OF EXCORIATION (L98.499) (see microscopic description and comment) 4:55 PM T DERMATOPATHOLOGY LABORATORY at 1655 CDT Clinical History ACD vs other. Path # [id number]. 4:55 PM T DERMATOPATHOLOGY LABORATORY Gross Description Specimen A: Received is one formalin filled container labeled with the patient's name and designated right post thigh. The specimen consists of a shave biopsy measuring [id number]. Jar 0. 4:55 PM T DERMATOPATHOLOGY LABORATORY Microscopic Description Specimen A. SKIN, right post thigh: There is focal parakeratosis and spongiosis. In the dermis there is a mainly superficial perivascular lymphohistiocytic inflammatory infiltrate with eosinophils.The majority of the specimen is composed of an epidermis that is necrotic and covered with a scale-crust. There is fibrin at the base. Grocott's methenamine silver (GMS) stain fails to highlight fungal elements in the available sections. COMMENT: In the correct clinical setting these histologic finding can be seen in a contact dermatitis; however, the majority of the histologic findings are secondary. 4:55 PM T DERMATOPATHOLOGY LABORATORY Disclaimer An external and internal positive and negative controls are appropriate for the histochemical, immunohistochemical and immunofluorescence stain(s) in this case (if any), except where stated explicitly. The performance characteristics of the stain(s) cited in this report were developed and its performance characteristic determined by the Dermatopathology Laboratory at [facility], directed by Dr. Aristeo Ramirez. These tests need not be, and therefore are not, approved by the [place] Food and Drug Administration. The tests are used for clinical purposes. Billing Codes Specimen Charges Stain Charges 19632 1 08169 1 4:55 PM CDT DERMATOPATHOLOGY LABORATORY Embedded Images 4:55 PM CDT DERMATOPATHOLOGY LABORATORY Pathology/Cytolo gy TISSUE SPECIMEN FROM SKIN / Unknown 04/09/2021 3:33 AM CDT 04/10/2021 7:48 AM CDT Shane Mendoza MD LAB - PATHOLOGY/CYTOLOGY ORDER CHANTAL Final Result DERMATOPATHOLOGY LABORATORY [facility] - Department of Dermatology [facility] [address] [place] [address], [address] [phone] documented in this encounter Visit Diagnoses Not on filedocumented in this encounter Care Teams Post Production Assistant Relationship Specialty Start Date End Date Dev Sage MD [address] [place] [address] PCP - General 05/17/20 documented as of this encounter
--- OUTSIDE RECORDS SUMMARY | 2025-07-03 15:58 | XMS_ITS | Clinical Summary ---
Author Organization [facility] Address [address] [place] [address] Care Team Providers Care Snaker Name Role Phone Domo Tello Primary Care Provider [phone] Allergies Active Allergy Reactions Criticality Noted Date Comments Penicillins Rash,Other (See Comments) Medium 6 Reaction: Unknown, Prednisone Unknown 08/05/2017 Medications ONETOUCH ULTRA TEST Strip USE DIRECTED FOR TESTING 8x DAILY. 250 Strip 5 7 Active Toujeo SoloStar U-300 Insulin 300 unit/mL (1.5 mL) pen syringe 1 Active Insulin Syringe-Needle U-100 0.5 mL 31 gauge x 5/16 Syringe Use to inject insulin 4 times daily 9 Active Insulin [place], Disposable, 31 gauge x 5/16 Needle USE TO INJECT INSULIN ONCE A DAY DIRECTED 0 Active insulin lispro (HumaLOG) 100 unit/mL vial Inject up to 10 units with meals per prescriber's ssi max 30 units per day 1 Active betamethasone, augmented (DIPROLENE-AF) 0.05 % Cream 1 Active insulin glulisine U-100 (Apidra SoloStar U-100 Insulin) 100 unit/mL pen syringe Inject 10 Units by subcutaneous injection. 0 Active hydrOXYzine HCL (ATARAX) 25 mg tablet Take 1 Tablet (25 mg) by mouth 3 times daily as needed for Itching. 60 Tablet Active Active Problems Problem Noted Date Diagnosed Date Elevated vitamin B12 level 03/06/2021 Chronic anemia 01/16/2021 Type 1 diabetes mellitus with diabetic polyneuro alaina 03/26/2017 Diabetic polyneuropathy asso ciated with type 2 diabetes mellitus 08/26/2016 Family History Medical History Relation Name Comments Hypertension Mother Relation Name Status Comments Brother Alive Daughter 1 Alive Daughter 2 Alive Father Mother Social History Tobacco Use Types Packs/Day Years Used Date Smoking Tobacco: Never Smokeless Tobacco: Never Alcohol Use Standard Drinks/Week Comments No 0 (1 standard drink = 0.6 oz pur e alcohol) Sex and Gender Information Value Date Recorded Sex Assigned at Not on file 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 Gender Identity Not on file Sexual Orientation Not on file Last Filed Vital Signs Vital Sign Reading Time Taken Comments Blood Pressure 111/81 01/21/2022 4:03 PM COMPUTER SYSTEM SPECIALIST Pulse 71 01/21/2022 4:03 PM COMPUTER SYSTEM SPECIALIST Temperature 36.4 C (97.6 F) 01/21/2022 4:03 PM COMPUTER SYSTEM SPECIALIST Respiratory Rate 16 08/26/2016 3:11 PM CDT Oxygen Saturation 96% 01/21/2022 4:03 PM COMPUTER SYSTEM SPECIALIST Inhaled Oxygen Concentration - - Weight 81.6 kg (179 lb 14.4 oz) 01/21/2022 4:03 PM COMPUTER SYSTEM SPECIALIST Height 177.8 cm (5' 10) 01/21/2022 4:03 PM COMPUTER SYSTEM SPECIALIST Body Mass Index 25.81 01/21/2022 4:03 PM COMPUTER SYSTEM SPECIALIST Plan of Treatment Health Maintenance Due Date Last Done Comments DTAP/TDAP/TD VACCINES (1 - Tdap) 1982 COLORECTAL SCREENING 2008 Colorectal Cancer Screening 2008 FIT-DNA Q 3 years 2008 FIT/FOBT Q 1 year 2008 Flex Sig/CT Colonography Q 5 years 2008 ZOSTER VACCINE (1 of 2) 2013 DIABETES ANNUAL RETINAL EXAM 11/13/2017, 11/13/2016, 11/13/2016, Additional history exists DIABETES MICROALBUMIN ANNUAL SCREEN 03/13/2018 03/13/2017 LDL CHOLESTEROL ANNUAL 03/13/2018 03/13/2017 DIABETES HBA1C Q 6 MONTHS 06/01/20222021, 01/30/2021, 12/28/2019, Additional history exists DIABETES ANNUAL FOOT EXAM 12/02/2022 12/02/2021, 09/2016 RSV VACCINE (60+ or ) (1 - Risk 60-74 years 1-dose series) 2023 INFLUENZA VACCINE (#1) 2025 Procedures Procedure Name Priority Date/Time Associated Diagnosis Comments MICROALBUMIN/CREATI NINE RATIO, RANDOM UR Routine 03/13/2017 8:48 AM CDT Diabetic polyneuropathy associated with type 2 diabetes mellitus (CMS/HCC) Hyperlipidemia associated with type 2 diabetes mellitus (CMS/HCC) LIPID PANEL Routine 03/13/2017 8:48 AM CDT Diabetic polyneuropathy associated with type 2 diabetes mellitus (CMS/HCC) Hyperlipidemia associated with type 2 diabetes mellitus (CMS/HCC) HEMOGLOBIN A1C Routine 03/13/2017 8:48 AM CDT Diabetic polyneuropathy associated with type 2 diabetes mellitus (CMS/HCC) Hyperlipidemia associated with type 2 diabetes mellitus (CMS/HCC) from Last 3 Months or Most Recently Relevant to Health Maintenance Results * MICROALBUMIN/CREATININE RATIO, RANDOM UR (03/13/2017 8:48 AM CDT) ABSTRACTED MICROALBUMIN,UR INE EXTERNAL LAB MICROALBUMIN, URINE mg/dL EXTERNAL LAB CREATININE, URINE EXTERNAL LAB MICROALBUMIN/CR EAT RATIO, UR EXTERNAL LAB MICROALBUMIN, URINE mg/dL EXTERNAL LAB CREATININE, URINE 97.0 40.0 - 278.0 mg/dL EXTERNAL LAB MICROALBUMIN/CR EAT RATIO, UR <=17.0 mg/g Creatinine EXTERNAL LAB Urine specimen (specimen) URINE SPECIMEN OBTAINED BY CLEAN CATCH PROCEDURE / Unknown 03/13/2017 8:48 AM CDT us Hawa Mcguire MD URINE ORDERABLES Final Result EXTERNAL LAB * (ABNORMAL) HEMOGLOBIN A1C (03/13/2017 8:48 AM CDT) ABSTRACTED HGB A1C EXTERNAL LAB HEMOGLOBIN A1C 8.2(A) 4.0 - 6.0 % EXTERNAL LAB HEMOGLOBIN A1C EXTERNAL LAB GLUCOSE, MEAN BLOOD EXTERNAL LAB Blood specimen (specimen) 03/13/2017 8:48 AM CDT Hawa Mcguire MD CHEMISTRY ORDERABLES Fi nal Result Performing Organization Address City/[facility] Co de Phone Number EXTERNAL LAB * (ABNORMAL) LIPID PANEL (03/13/2017 8:48 AM CDT) ABSTRACTED CHOLESTEROL EXTERNAL LAB ABSTRACTED TRIGLYCERIDE EXTERNAL LAB ABSTRACTED HDL EXTERNAL LAB ABSTRACTED LDL CALCULATED EXTERNAL LAB CHOLESTEROL 281(A) 100 - 200 mg/dL EXTERNAL LAB CHOLESTEROL EXTERNAL LAB TRIGLYCERIDE 69 10 - 150 mg/dL EXTERNAL LAB TRIGLYCERIDE EXTERNAL LAB HDL 76 10 - 150 mg/dL EXTERNAL LAB HDL EXTERNAL LAB LDL CALCULATED 193(A) 60 - 129 mg/dL EXTERNAL LAB LDL CALCULATED EXTERNAL LAB CALCULATED LDL CHOLESTEROL mg/dL EXTERNAL LAB CALCULATED TOTAL CHOLESTEROL TO HDL RATIO EXTERNAL LAB CHOL/HDL RATIO EXTERNAL LAB VLDL-3 (REMNANT LIPO) mg/dL EXTERNAL LAB LIPID PANEL COMMENT EXTERNAL LAB RISK FACTOR EXTERNAL LAB RESULT COMMENT, CHEMISTRY EXTERNAL LAB NON-HDL CHOLESTEROL 205 mg/dL EXTERNAL LAB Blood specimen (specimen) 03/13/2017 8:48 AM CDT Hawa Mcguire MD CHEMISTRY ORDERABLES Fi nal Result Performing Organization Address [facility] de Phone Number EXTERNAL LAB from Last 3 Months or Most Recently Relevant to Health Maintenance Insurance [employer] [employer] BLUE ACCESS CHOICE [place] [employer]ESS CHOICE Care Teams Snaker Relationship Specialty Start Date End Date Dmoo Tello DO [address] [facility] [address] [place] [address] PCP - General Internal Medicine 01/16/21
--- OUTSIDE RECORDS SUMMARY | 2025-07-03 15:58 | XMS_ITS | Encounter Summary ---
Author Organization [employer] [facility] Address 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
--- OUTSIDE RECORDS SUMMARY | 2025-07-03 15:58 | XMS_ITS | Clinical Summary ---
Author Organization [facility] Address [address] [place] [id number] Care Team Providers Care Group Leader [employer] Name Role Phone Domo Tello DO Primary Care Provider [phone] Allergies Active Allergy Reactions Criticality Noted Date Comments Penicillins Other (See comments) Reaction: Unknown, Prednisone Medications insulin syringe-needle U-100 0.5 mL 31 gauge x 5/16 syringe Use to inject insulin 4 times daily 400 each 1 02/17/20 19 Active alcohol swabs (ALCOHOL PADS) pads, medicated Use as directed PRN 500 each 05/05/20 19 Active pen needle, diabetic (TRUEplus Pen Needle) 31 gauge x 5/16 needle Use to inject insulin 3-4 times daily. 200 each 3 05/26/20 22 Active blood-glucose sensor device Use for BG monitoring 2 each 11 06/30/20 22 Active blood-glucose transmitter (Dexcom G6 Transmitter) device Use for BG monitoring 1 each 3 06/30/20 22 Active blood-glucose meter,continuous (Dexcom G6 Rn Residential) misc Use for BG monitoring 1 each 06/30/20 22 Active insulin glargine (TOUJEO) 300 unit/mL (1.5 mL) pen for injectionIndicat ions:Type 1 diabetes mellitus with hyperglycemia (HCC) Inject 35 Units under the skin nightly 15 mL 01/09/20 25 Active sildenafiL (VIAGRA) 100 mg tablet TAKE ONE TABLET BY MOUTH DAILY NEEDED 10 tablet 11 04/05/20 25 Active blood glucose diagnostic (OneTouch Ultra Test) stripIndications :Type 1 diabetes mellitus with hyperglycemia (HCC) USE TO CHECK SUGARS up to 10 times daily 400 strip 3 03/28/20 Active sildenafiL (VIAGRA) 100 mg tablet TAKE ONE TABLET BY MOUTH DAILY NEEDED 10 tablet 04/05/20 25 Active insulin lispro (HumaLOG) 100 unit/mL pen for injectionIndicat ions:Type 1 diabetes mellitus with hyperglycemia (HCC) INJECT 10 UNITS WITH MEALS PER PRESCRIBER SSI MAX 30 UNITS PERDAY 15 mL 11 06/07/20 25 Active insulin lispro (HumaLOG) 100 unit/mL pen for injectionIndicat ions:Type 1 diabetes mellitus with hyperglycemia (HCC) INJECT 10 UNITS WITH MEALS PER PRESCRIBER SSI MAX 30 UNITS PERDAY 15 mL 11 01/09/20 25 025 Discontinued Active Problems Problem Noted Date Diagnosed Date Statin medication declined by patient 12/31/2022 Assessment & Plan (12/31/2022 3:54 PM AIRPORT OPERATIONS COORDINATOR): Pt not interested in statins Elevated vitamin B12 level 03/06/2021 Chronic anemia 01/16/2021 Renal cyst 09/21/2020 Depression with anxiety 08/03/2019 Assessment & Plan (08/03/2019 4:20 PM CDT): Denies suicidal thoughts He is doing counseling with club licensee at [facility] I offered him antidepressants; he will think about it. Mixed diabetic hyperlipidemi a associated with type 1 diabetes mellitus 03/24/2018 Assessment & Plan (04/13/2024 2:06 PM CDT): Chronic, uncontrolled Update lipid profile The patient is still refusing use of statin Assessment & Plan (09/07/2023 4:14 PM CDT): Chronic, uncontrolled Patient again refusing statin therapy Assessment & Plan (12/31/2022 3:53 PM AIRPORT OPERATIONS COORDINATOR): Low cholesterol low fat diet. Pt not interested in statin. Assessment & Plan (06/30/2022 4:26 PM CDT): Role of a statin in lowering cardiovascular risk in diabetic patient was explained again Patient still declines the use of any statin therapy Lipid profile requested Assessment & Plan (12/02/2021 4:18 PM AIRPORT OPERATIONS COORDINATOR): Due to the high risk of of heart attack and stroke in patients with diabetes, it is strongly recommended to aim for a LDL-cholesterol ( bad cholesterol ) of less than 100 ( or less than 70 if you have a history of stroke or heart disease ) and a non HDL cholesterol of less than 130 . Since statin medications have shown to decrease the risk of heart disease and strokes in patients with diabetes , its use is strongly recommended. Pt rejects use of statins. Assessment & Plan (05/29/2021 3:56 PM CDT): Goal of treatment , LDL cholesterol less than 100 ( less than 70 in patients with history of heart attacks and / or strokes ) NonHDL cholesterol ( total cholesterol minus HDL cholesterol ) goal less than 130 ( less than 100 in patients with history of heart attacks and / or strokes ) Low cholesterol, low fat diet was discussed and advised. Daily exercise The patient is not interested in taking statins. Assessment & Plan (01/30/2021 10:42 AM CDT): Due to the high risk of of heart attacks and strokes in patients with diabetes, it is stronglyce recommended to aim for LDL-cholesterol ( bad cholesterol ) of less than 100 ( or less than 70 if you have a history of stroke or heart disease ) and a non HDL cholesterol of less than 130 . Since statin medications have shown to decrease the risk of heart disease and strokes in patients with diabetes , its use is strongly recommended. Patient is very reluctant to start statin therapy Assessment & Plan (06/27/2020 4:03 PM CDT): Goal of treatment , LDL cholesterol less than 100 ( less than 70 in patients with history of heart attacks and / or strokes ) NonHDL cholesterol ( total cholesterol minus HDL cholesterol ) goal less than 130 ( less than 100 in patients with history of heart attacks and / or strokes ) Low cholesterol, low fat diet was discussed and advised. Daily exercise Patient not interested in statins. Assessment & Plan (12/28/2019 3:45 PM AIRPORT OPERATIONS COORDINATOR): Goal of treatment , LDL cholesterol less than 100 ( less than 70 in patients with history of heart attacks and / or strokes ) NonHDL cholesterol ( total cholesterol minus HDL cholesterol ) goal less than 130 ( less than 100 in patients with history of heart attacks and / or strokes ) Low cholesterol, low fat diet was discussed and advised. Daily exercise On statin therapy Patient declines use of statins. Assessment & Plan (08/03/2019 4:19 PM CDT): Very high LDL No interested in taking statins. Assessment & Plan (01/26/2019 4:13 PM CDT): Due to the high risk of of heart attacks and strokes in patients with diabetes, it is stronglyce recommended to aim for LDL-cholesterol ( bad cholesterol ) of less than 100 ( or less than 70 if you have a history of stroke or heart disease ) and a non HDL cholesterol of less than 130 . Since statin medications have shown to decrease the risk of heart disease and strokes in patients with diabetes , its use is strongly recommended. Patient declines use of statin. Assessment & Plan (09/29/2018 3:53 PM AIRPORT OPERATIONS COORDINATOR): Due to the high risk of of heart attacks and strokes in patients with diabetes, it is stronglyce recommended to aim for LDL-cholesterol ( bad cholesterol ) of less than 100 ( or less than 70 if you have a history of stroke or heart disease ) and a non HDL cholesterol of less than 130 . Since statin medications have shown to decrease the risk of heart disease and strokes in patients with diabetes , its use is strongly recommended. Patient not interested in statins Assessment & Plan (03/24/2018 10:09 AM CDT): Goal of treatment , LDL cholesterol less than 100 ( less than 70 in patients with history of heart attacks and / or strokes ) NonHDL cholesterol ( total cholesterol minus HDL cholesterol ) goal less than 130 ( less than 100 in patients with history of heart attacks and / or strokes ) Low cholesterol, low fat diet was discussed and advised. Daily exercise Patient refusing to use any cholesterol lowering meds. Type 1 diabetes mellitus with diabetic polyneuro alaina 03/26/2017 Diabetic polyneuropathy asso ciated with type 2 diabetes mellitus 08/26/2016 Pure hypercholesterolemia 04/01/2014 Overview (02/19/2017): PURE HYPERCHOLESTEROLEM Assessment & Plan (08/05/2017 3:21 PM CDT): Due to the high risk of of heart attacks and strokes in patients with diabetes, it is stronglyce recommended to aim for LDL-cholesterol ( bad cholesterol ) of less than 100 ( or less than 70 if you have a history of stroke or heart disease ) and a non HDL cholesterol of less than 130 . Since statin medications have shown to decrease the risk of heart disease and strokes in patients with diabetes , its use is strongly recommended. Patient declines use of statins Insomnia 11/29/2013 Overview (02/18/2017): Insomnia Type 1 diabetes mellitus with hyperglycemia 08/17 Overview (02/18/2017): Diabetes Mellitus, Type 2, Uncontrolled Assessment & Plan (04/13/2024 2:06 PM CDT): Chronic, stable but continues to be uncontrolled I advised the patient to increase the Toujeo to 30 units daily Continue Humalog again trying to calculate 1/50 g of carb with correction 40, although the patient probably will continue taking small amounts every 2- 3 hours He seems to be more open to the idea of an insulin pump. He will let me know if he decides so we can start the paperwork Assessment & Plan (09/07/2023 4:13 PM CDT): Hba1c was Lab Results Component Value Date HGBA1C 8.4 09/07/2023 today, indicating inadequate DM control Goal Hba1c and blood glucose explained Diet and exercise were advised Prevention and treatment of hyypoglcyemia were discussed with the patient Blood glucose monitoring : CGM with freestyle Hailey 2 was again advised. The patient said that he will think about it. Prescription for reader in the sensors was sent Adjustment to medications: Continue current regimen Stay on Toujeo, 28 units at bedtime Take Humalog, before meals , trying to calculate one units per 15 grams of carbs and add one unit per every 30 points over 130. Assessment & Plan (12/31/2022 3:54 PM AIRPORT OPERATIONS COORDINATOR): Hba1c was Lab Results Component Value Date HGBA1C 8.2 12/31/2022 today, indicating Inadequate DM control Goal Hba1c and blood glucose explained Diet and exercise were advised Prevention and treatment of hyypoglcyemia were discussed with the patient Blood glucose monitoring : I encouraged pt to start using his DEXCOM Adjustment to medications: Advised to increasing Toujeo by 2-3 units Continue Humalog , current dose. Assessment & Plan (06/30/2022 4:27 PM CDT): Hemoglobin A1c continue to be 8.0, unchanged Patient still very reluctant to make any changes to t the way he manages his diabetes, with small doses of Humalog multiple times a day. He would benefit from insulin pump but he still declines Patient is agreeable now to CGM. Prescription for Dexcom was sent Assessment & Plan (12/02/2021 4:19 PM AIRPORT OPERATIONS COORDINATOR): Hba1c was Lab Results Component Value Date HGBA1C 8.0 12/02/2021 today, indicating inadequate DM control Goal Hba1c and blood glucose explained Diet and exercise were advised Prevention and treatment of hyypoglcyemia were discussed with the patient Blood glucose monitoring : Will recommend CGM with Dexcom or freestyle Hailey, but the patient declined He said that he will think about it Adjustment to medications: Continue current insulin regimen with Toujeo and Humalog Assessment & Plan (05/29/2021 3:55 PM CDT): Hba1c was Lab Results Component Value Date HGBA1C 8.1 05/29/2021 today, indicating inadequate DM control Goal blood sugars in the 120-150 range , with Hb1c under 7.0 % was explained 1800 calorie, consistent carb diet recommended. No more than 30-45 grams of carbs per meal recommended, as well as avoiding high concentrated sweet drinks . 25-45 min daily exercise, combining both aerobic and resistance exercise recommended. The need to monitor blood glucose before meals and bedtime was discussed. Prevention and treatment of hyypoglcyemia discussed. would recommend a CGM, pt not interested. Pt very reluctant to changes in his insulin dose Assessment & Plan (01/30/2021 10:40 AM CDT): Hba1c was Lab Results Component Value Date HGBA1C 8.0 01/30/2021 today, indicating Inadequate DM control Goal blood sugars in the 120-150 range , with Hb1c under 7.0 % was explained 1800 calorie, consistent carb diet recommended. No more than 30-45 grams of carbs per meal recommended, as well as avoiding high concentrated sweet drinks . 25-45 min daily exercise, combining both aerobic and resistance exercise recommended. The need to monitor blood glucose before meals and bedtime was discussed. Prevention and treatment of hyypoglcyemia discussed. Would recommend a different approach, with BG monitoring ac and hs, and different correctional scale Pt very reluctant to any changes. Also not interested inCGMS. Assessment & Plan (06/27/2020 4:02 PM CDT): Hba1c was Lab Results Component Value Date HGBA1C 8.3 06/27/2020 today, indicating inadequate DM control 1800 calorie, consistent carb diet recommended. No more than 30-45 grams of carbs per meal recommended, as well as avoiding high concentrated sweet drinks . 25-45 min daily exercise, combining both aerobic and resistance exercise recommended. The need to monitor blood glucose before meals and bedtime was discussed. Prevention and treatment of hyypoglcyemia discussed. Insulin dose: continue current regimen Strongly recommended to start DEXCOM Assessment & Plan (12/28/2019 3:47 PM AIRPORT OPERATIONS COORDINATOR): Hba1c was Lab Results Component Value Date HGBA1C 7.5 12/28/2019 today, indicating suboptimal DM control 1800 calorie, consistent carb diet recommended. No more than 30-45 grams of carbs per meal recommended, as well as avoiding high concentrated sweet drinks . 25-45 min daily exercise, combining both aerobic and resistance exercise recommended. The need to monitor blood glucose before meals and bedtime was discussed. Prevention and treatment of hyypoglcyemia discussed. Insulin dose: Continue current Patient will find out with his job to see if he can wear his DEXCOM so we can request it Assessment & Plan (08/03/2019 4:17 PM CDT): Hba1c was Lab Results Component Value Date HGBA1C 8.1 01/26/2019 today, indicating suboptimal DM control 1800 calorie, consistent carb diet recommended. No more than 30-45 grams of carbs per meal recommended, as well as avoiding high concentrated sweet drinks . 25-45 min daily exercise, combining both aerobic and resistance exercise recommended. The need to monitor blood glucose before meals and bedtime was discussed. Prevention and treatment of hyypoglcyemia discussed. Insulin dose: contniue current regimen ( pt not willing to make changes ) DEXCOM requested Assessment & Plan (01/26/2019 4:12 PM CDT): Hba1c was Lab Results Component Value Date HGBA1C 8.1 01/26/2019 today, indicating Inadequate DM control 1800 calorie, consistent carb diet recommended 25-45 min daily exercise, combining both aerobic and resistance exercise recommended. The need to monitor blood glucose before meals and bedtime was discussed. Dose of basal and prandial insulin adjusted as follows: Would recommend an insulin pump, pt very reluctant Also a CGMS system, pt declining Prevention and treatment of hyypoglcyemia discussed. Assessment & Plan (10/05/2018 11:57 AM AIRPORT OPERATIONS COORDINATOR): Your Hba1c today was: Lab Results Component Value Date HGBA1C 8.0 09/29/2018 meaning a 3 month average sugar of : 180 Your goal hba1c is under 7.0 to prevent jail diabetes complications ( eye , kidney and nerve damage ) . Your goal sugars are in the 90-130 range Daily aerobic ( walking, riding a bike, swimming ) and resistance exercises ( light weight lifting, resistance band stretching ) for at least 30 minutes is recommended If you can not walk, chair exercises for 10-15 min a day would help tremendously. As little as 15-20 minutes exercise , in one or two sessions a day, is still very helpful to improve your diabetes control . Eat small portion meals, trying not to consume no more than 1800 calories a day . Try to eat not more than than 3 servings of carbs ( starches ) wiith your meals. Avoid soft drinks, including regular sodas , fruit juices and sweetened tea. Drink water instead. Eat plenty of green and leafy vegetables, including salads. Take your medications regularly. Setting phone alarms can help . Keep your medication on the kitchen dinner table, by the bedside table or by the sink where they are visible to you. The insulin that you are currently using does not need to be refrigerated. Keep it where you can see it . Monitor your sugar levels with finger sticks regularly and keep a log sheet or book. Bring your sugar meter and /or a log book or log sheet to every office visit. Increase Toujeo to 30 units Increase Humalog by 2 units each time Might benefit from an insulin pump; will try to set up Assessment & Plan (03/24/2018 10:05 AM CDT): Hba1c was Lab Results Component Value Date HGBA1C 8.0 03/24/2018 today, indicating Sub-optimal DM control 1800 calorie, consistent carb diet recommended 30 min daily exercise, combining both aerobic and resistance exercise is strongly recommended and needed as part of diabetes management plan. The need to monitor blood glucose before meals and bedtime was discussed. Take prandial insulin before meals based on carb intake and blood glucose readings. Prevention and treatment of hyypoglcyemia discussed. Risk and inneficacy of taking Humalog every 3-4 h was discussed. Pt seems to have a hard time following instructions, mostly because of his fear to hypoglycemia The use of CGM ( actually, he has a DEXCOM but it is not using it ) and an insulin pump, like the [id number] , closed loop system or the OmniPod was discussed at length, information provided. Assessment & Plan (10/19/2017 1:55 PM AIRPORT OPERATIONS COORDINATOR): A1c 7.8. Dicussed concept of insulin pump therapy and CGM. His issue is not checking sugars at work and bolusing too frequently, sometimes q 2-3 hours. Advised against this. D/T reported elevated FBG increase Toujeo by 2 units weekly until FBG < 150. Interested in CGM, will consider insulin pump. Trend arrows on CGM would be helpful in making better bolus choices. Assessment & Plan (08/05/2017 3:22 PM CDT): Hba1c was 7.9 today, indicating suboptimal DM control 1800 calorie, consistent carb diet recommended 30 min daily exercise, combining both aerobic and resistance exercise is strongly recommended and needed as part of diabetes management plan. The need to monitor blood glucose before meals and bedtime was discussed. Take prandial insulin before meals based on carb intake and blood glucose readings. Prevention and treatment of hyypoglcyemia discussed. Take Toujeo, 20 units once a day Check sugars before meals and bedtime Take Apidra, 3 units before meals For sugars over 150, 4 units Over 200, 5 units Over 240, 6 units Over 280, 7 units Over 320, 8 units Patient would benefit from an insulin pump Its use was discussed Will wear an OmniPod Pod to see how he feesl. Benign prostatic hyperplasia 09/05/2013 Overview (02/20/2017): BPH (benign prostatic hyperplasia) Medical History Medical History Date Comments Hx Other Medical left elbow surg saadia Rash Diabetes mellitus type I (HCC) Family History Medical History Relation Name Comments Stroke Mother's Brother Stroke; Other Other 1 No family histo ry of Diabetes mellitus; Other Other 2 No family histo ry of Hyperlipidemia; Other Other 3 No family histo ry of Hypertension; Other Other 4 No family histo ry of Coronary artery disease; Other Other 5 No family histo ry of Cancer; Relation Name Status Comments Mother's Brother Other 1 Other 2 Other 3 Other 4 Other 5 Social History Tobacco Use Types Packs/Day Years Used Date Smoking Tobacco: Never Smokeless Tobacco: Never Tobacco Cessation:Counseling Given: Not Answered Alcohol Use Standard Drinks/Week Comments No 0 (1 standard drink = 0.6 oz pur e alcohol) AUDIT-C Answer Date Recorded Q1: How often do you have a drink containing alcohol? Never 01/09/2025 Q2: How many drinks containi ng alcohol do you have on a typical day when you are drinking? Patient does not drink Q3: How often do you have si x or more drinks on one occasion? Never 01/09/2025 PHQ-2 Answer Date Recorded PHQ-2 Total Score (If total score is 3 or more points, staff should administer the PHQ-9) 0 01/09/2025 Sex and Gender Information Value Date Recorded Sex Assigned at Not on file Legal Sex Male 5:58 PM AIRPORT OPERATIONS COORDINATOR Gender Identity Not on file Sexual Orientation Straight 01/09/2025 3: 20 PM AIRPORT OPERATIONS COORDINATOR Obstetrics History Last Filed Vital Signs Vital Sign Reading Time Taken Comments Blood Pressure 100/60 01/09/2025 3:30 PM AIRPORT OPERATIONS COORDINATOR Pulse 74 01/09/2025 3:30 PM AIRPORT OPERATIONS COORDINATOR Temperature - - Respiratory Rate 20 01/09/2025 3:30 PM AIRPORT OPERATIONS COORDINATOR Oxygen Saturation - - Inhaled Oxygen Concentration - - Weight 81.6 kg (180 lb) 01/09/2025 3:30 PM AIRPORT OPERATIONS COORDINATOR Height 177.8 cm (5' 10) 01/09/2025 3:30 PM AIRPORT OPERATIONS COORDINATOR Body Mass Index 25.83 01/09/2025 3:30 PM AIRPORT OPERATIONS COORDINATOR Plan of Treatment Health Maintenance Due Date Last Done Comments Colon Cancer Screening-Colonoscopy 1963 Hepatitis C Screening 1963 Prostate Cancer Screening-PSA 1963 DTaP/Tdap/Td Vaccine (1 - Tdap) 1974 Hepatitis B Screening 1981 Regular Well Visit/Exam 18-64 1981 Pneumococcal vaccine <65 (1 of 2 - PCV) 1982 Zoster Vaccine (1 of 2) 2013 Dilated Eye Exam 03/14/2023 03/14/2022, 02/2019, 11/19/2018 TSH Level 10/18/2023 10/18/2022, 06/17/2019 Foot Exam 12/31/2023 12/31/2022, 11/16, 01/30/2021, Additional history exists Covid-19 Vaccine (2023-2 5 season) 2024 10/07/2021, 09/16/2021 Lipid Panel 04/13/2025 04/13/2024, 12/0 01/2022, 12/02/2021, Additional history exists eGFR 04/13/2025 04/13/2024, 12/0 01/2022, 01/30/2021, Additional history exists Hemoglobin A1C 07/09/2025 01/09/2025, 05/2 07/2024, 09/07/2023, Additional history exists Influenza Vaccine (#1) 2025 Albumin Creatinine Ratio, Urine 01/09/2026 01/09/2025, 09/07/2023, 06/30/2022, Additional history exists Depression Screening 01/09/2026 01/09/2025, 12/31/2022, 06/30/2022, Additional history exists Procedures Procedure Name Priority Date/Time Associated Diagnosis Comments ALBUMIN CREATININE RATIO, URINE Routine 01/09/2025 4:13 PM AIRPORT OPERATIONS COORDINATOR Type 1 diabetes mellitus with hyperglycemia (HCC) POCT HEMOGLOBIN A1C Routine 01/09/2025 3 :29 PM AIRPORT OPERATIONS COORDINATOR Type 1 diabetes mellitus with hyperglycemia (HCC) EGFR Routine 04/13/2024 2:06 PM CDT Type 1 diabetes mellitus with hyperglycemia (HCC) LIPID PANEL Routine 04/13/2024 2:06 PM CDT Type 1 diabetes mellitus with hyperglycemia (HCC) TSH Routine 10/18/2022 10:12 AM AIRPORT OPERATIONS COORDINATOR Type 1 diabetes mellitus with hyperglycemia (HCC) DIABETIC EYE EXAM Routine 03/14/2022 from Last 3 Months or Most Recently Relevant to Health Maintenance Results * Albumin Creatinine Ratio, Urine (01/09/2025 4:13 PM AIRPORT OPERATIONS COORDINATOR) Albumin Ur <12.0 mg/L Comment: Collection date/time has been modified to: 16:13:00. Previous collection date/time: 15:19:00. Interpretive Data No reference range established. Current interpretive data was last revised 2019. Creatinine Ur 44.8 mg/dL FREDERICK CHAUHAN Comment: Collection date/time has been modified to: 16:13:00. Previous collection date/time: 15:19:00. Interpretive Data No reference range established. Current interpretive data was last revised 2019. Albumin Creatinine Ratio, Ur <27 1 - 29 mg/g FREDERICK CHAUHAN Comment:Collection date/time has been modified to: 16:13:00. Previous collection date/time: 15:19:00. Urine 01/09/2025 4:13 PM AIRPORT OPERATIONS COORDINATOR 01/10/2025 6:58 PM AIRPORT OPERATIONS COORDINATOR us Esther Yu MD LAB URINE ORDERABLES Edited Resu lt - Final FREDERICK CHAUHAN [id number] Department [place] [address] * (ABNORMAL) POCT hemoglobin A1c (01/09/2025 3:29 PM AIRPORT OPERATIONS COORDINATOR) Hemoglobin A1C, POC 8.7 4.0 - 5.6 % Comment:None Capillary blood 01/09/2025 3 :29 PM AIRPORT OPERATIONS COORDINATOR us Esther Yu MD POINT OF CARE TEST ORDERABLES Fi nal Result * eGFR (04/13/2024 2:06 PM CDT) eGFR 76 >=60 mL/min/1. 73 m2 Comment: Interpretive Data Reference Interval Normal >/= 90 mL/min/1.73m2 Mildly decreased* 60 - 89 mL/min/1.73m2 Mildly to moderately decreased 45 - 59 mL/min/1.73m2 Moderately to severely decreased 30 - 44 mL/min/1.73m2 Severely decreased 15 - 29 mL/min/1.73m2 Kidney Failure < 15 mL/min/1.73m2 *Relative to young adult level Estimated glomerular filtration rate is determined by the 2020 CKD-EPI equation recommended by the National Kid[employer] (A Unifying Approach to GFR Estimation: Recommendations of the NKF-ASK Task Force on Reassessing the Inclusion of Race in Diagnosing Kidney Disease, JASN 2020). The CKD-EPI equation should not be used for patients with unstable renal function and has not been validated in children and those over 70. Current interpretive data was last reviewed 2021. Blood 04/13/2024 2:06 PM CDT 04/13/2024 5:20 PM CDT us Esther Yu MD LAB BLOOD ORDERABLES Final Resul t [facility] [address] Department [place] [address] * (ABNORMAL) Lipid panel (04/13/2024 2:06 PM CDT) Cholesterol 231(H) 30 - 199 mg/dL Comment: Interpretive Data Ages < or = 19 years Acceptable: <170 mg/dL Borderline high: 170-199 mg/dL High: >or= 200 mg/dL Ages > or = 20 years Desirable: <200 mg/dL Borderline high: 200-239 mg/dL High: >or= 240 mg/dL Literature References: 1. Expert Panel on Integrated Guidelines for Cardiovascular Health and Risk Reduction in Children and Adolescents. Pediatrics 2011;128:S213 2. NCEP Expert Panel. Circulation 2004;110:227 Current Interpretive Data was last revised on 2018. Triglycerides 174(H) <=149 mg/dL [facility] CHAUHAN Comment: Interpretive Data Ages < or = 9 years Acceptable: <75 mg/dL Borderline high: 75-99 mg/dL High: >or= 100 mg/dL Ages 10 to 20 years Acceptable: <90 mg/dL Borderline high: 90-129 mg/dL High: >or= 130 mg/dL Ages > or = 20 years Desirable: <150 mg/dL Borderline high: 150-199 mg/dL High: 200-499 mg/dL Very high: >or= 499 mg/dL Literature References: 1. Expert Panel on Integrated Guidelines for Cardiovascular Health and Risk Reduction in Children and Adolescents. Pediatrics 2011;128:S213 2. NCEP Expert Panel. Circulation 2003;110:227 Current Interpretive Data was last revised on 2018. HDL 66 >=40 mg/dL [facility] CHAUHAN Comment: Interpretive Data Ages < or = 19 years Acceptable: >45 mg/dL Borderline low: 40-45 mg/dL Low: <40 mg/dL Ages > or = 20 years Desirable: >or= 60 mg/dL Low: <40 mg/dL Literature References: 1. Expert Panel on Integrated Guidelines for Cardiovascular Health and Risk Reduction in Children and Adolescents. Pediatrics 2011;128:S213 2. NCEP Expert Panel. Circulation 2004;110:227 Current Interpretive Data was last revised on 2018. LDL, calculated 130(H) <=129 mg/dL [facility] CHAUHAN Comment: Interpretive Data Ages < or = 19 years Acceptable: <110 mg/dL Borderline high: 110-129 mg/dL High: >or= 130 mg/dL Ages > or = 20 years Optimal: <100 mg/dL Near optimal: 100-129 mg/dL Borderline high: 130-159 mg/dL High: >160 mg/dL Literature References: 1. Expert Panel on Integrated Guidelines for Cardiovascular Health and Risk Reduction in Children and Adolescents. Pediatrics 2011;128:S213 2. NCEP Expert Panel. Circulation 2004;110:227 Current Interpretive Data was last revised on 2018. Non-HDL Cholesterol 165 mg/dL [facility] CHAUHAN Comment: Interpretive Data Ages < or = 19 years Acceptable: <120 mg/dL Borderline high: 120-144 mg/dL High: >145 mg/dL Ages > or = 20 years When triglycerides are >200 mg/dL, Non-HDL cholesterol is a secondary target of therapy with treatment goals that are 30 mg/dL greater than the LDL cholesterol target. Literature References: 1. Expert Panel on Integrated Guidelines for Cardiovascular Health and Risk Reduction in Children and Adolescents. Pediatrics 2011;128:S213 2. NCEP Expert Panel. Circulation 2004;110:227 Current Interpretive Data was last revised on 2018. Chol/HDL ratio 4 [facility] CHAUHAN Blood 04/13/2024 2:06 PM CDT 04/13/2024 5:18 PM CDT Esther Yu MD LAB BLOOD ORDERABLES Final Resul t Performing Organization Address City/[facility]/ZIP Co de Phone Number [facility] [address] [address] Department [place] [address] * TSH (10/18/2022 10:12 AM AIRPORT OPERATIONS COORDINATOR) Scribed TSH 0.83 0.36 - 3.74 mcU/mL EXTERNAL LAB Blood 10/18/2022 10:1 2 AM AIRPORT OPERATIONS COORDINATOR Esther Yu MD LAB BLOOD ORDERABLES Final Resul t EXTERNAL LAB * Diabetic Eye Exam (03/14/2022) Anne Weber MD HEALTH MAINTENANCE Edited Result - Final from Last 3 Months or Most Recently Relevant to Health Maintenance Insurance Mister Mario CHOICE AL Mister Mario CHOICE AL Care Teams Group Leader Wafer Polishing Relationship Specialty Start Date End Date Domo Tello DO PCP - General Internal Medicine 01/30/21
[2025-07-03 16:08] LABS: Thyroid Stimulating Hormone 0.510 uIU/mL (0.465-4.680)
== END 2025-07-03 15:08 | disposition home or self-care (01) ==
LOC: CHSLAB 15:10
PROVIDERS: PCP Internal Medicine; Visit Provider Internal Medicine
DX: R06.00 Dyspnea, unspecified (principal); R01.1 Cardiac murmur, unspecified; I21.19 ST elevation (STEMI) myocardial infarction involving other coronary artery of inferior wall; R94.31 Abnormal electrocardiogram [ECG] [EKG]
CPT/HCPCS: 36415; 71046; 80053; 81003; 83880; 84443; 85027; 85380; 86140; 93005

== ENCOUNTER 2025-07-04 17:04 | Outpatient (CLI) | payer BC, SELFPAY ==
--- NOTE | 2025-07-04 | CONSULT_PTH ---
PATIENT: Ernesto Gimenez LOC: [facility]#:[id number] AGE/SX: 59/M ROOM: RE07/04/[address]: Jeffrey Benjamin MD : 1965 BED: DIS: 07/04/2025 SPEC #: [id number] RECD: 07/04/25 17:24 STATUS: JORGE RERobinson #: [id number] WALT: 07/04/25 00:[address]: Jeffrey Benjamin DEPT: [facility] Consult RECD BY: Bozena Alcantara [place],([facility]) Tissues: A - Peripheral Smear Procedures: Hematology Consult
[2025-07-04 17:18] LABS: Hematocrit 38.3 % (40.0-54.0); Hemoglobin 12.8 g/dL (14.0-18.0); Immature Reticulocyte Fraction 2.2 % (2.0-16.52); Reticulocyte Hemoglobin Conten 35.1 pg (28.0-35.0); Reticulocytes Absolute 0.04 M/mm3 (0.02-0.10)
[2025-07-04 17:57] LABS: Iron 85 ug/dL (49-181)
[2025-07-04 18:06] LABS: Percent Iron Saturation 42 % (20-50)
[2025-07-04 18:33] LABS: Ferritin 158.00 ng/mL (11.1-264)
[2025-07-04 18:47] LABS: Vitamin B12 928.0 pg/mL (239-931)
[2025-07-05 15:17] LABS: CRP 0.7 mg/dL (<1.0)
[2025-07-06 15:09] LABS: Folate, Hemolysate 511.0 ng/mL (Not Estab.); Folate, RBC 1300 ng/mL (>498); Hematocrit 39.3 % (37.5-51.0)
== END 2025-07-04 17:05 | disposition home or self-care (01) ==
LOC: CHSLAB 17:06
PROVIDERS: PCP Internal Medicine; Visit Provider Internal Medicine
DX: D64.9 Anemia, unspecified (principal)
CPT/HCPCS: 36415; 82607; 82728; 82747; 83540; 83550; 85014; 85018; 85046; 86140

== ENCOUNTER 2025-08-29 15:35 | Outpatient (CLI) | payer BC, SELFPAY ==
--- NOTE | 2025-08-29 15:39 | ECHO_ITS ---
Patient Info Name: Ernesto Gimenez Age: 59 years : 1965 Gender: Male Ht: 70 in Wt: 180 lbs BSA: 2.02 m2 HR: 60 bpm BP: 117 / 63 mmHg Technical Quality: Good Exam Date: 08/29/2025 3:40 PM Patient Status: O Admit Date: 08/29/2025 Exam Type: CA echo doppler color flow Complete two-dimensional, color flow and Doppler transthoracic echocardiogram is performed. Tree Care Foreman: Miranda Cervantes Attending Provider: Jeffrey Benjamin MD Summary 1. Complete two-dimensional, color flow and Doppler transthoracic echocardiogram is performed. 2. Left ventricular chamber dimension is normal. 3. Left ventricular systolic function is normal, estimated at 60-65. 4. The left ventricular diastolic function is normal. 5. E/e' 6 is not elevated. 6. There is trace mitral valve regurgitation. Left Ventricle E/e' 6 is not elevated. Left ventricular chamber dimension is normal. Left ventricular systolic function is normal, estimated at 60-65. The left ventricular diastolic function is normal. Right Ventricle Right ventricular chamber dimension is normal. Right ventricular systolic function is normal and with normal TAPSE 2.0 cm. Left Atria Left atrial chamber dimension is normal. Right Atria Right atrial chamber dimension is normal. Aortic Valve The aortic valve is trileaflet. There is no aortic valve stenosis. There is no aortic valve regurgitation. Pulmonic Valve There is no pulmonic regurgitation. Mitral Valve There is no mitral valve stenosis. There is trace mitral valve regurgitation. Tricuspid Valve There is no tricuspid valve regurgitation. Pericardium/Pleural There is no pericardial effusion. Inferior Vena Cava Normal inferior vena cava with >50% collapse upon inspiration consistent with normal right atrial pressure, 5 mmHg. Aorta The aortic root size at the sinus of Valsalva is normal. Left Ventricular Outflow Tract Name Value Normal LVOT 2D LVOT Diameter 2.0 cm LVOT Doppler LVOT Peak Velocity 113 cm/s LVOT Peak Gradient 5 mmHg LVOT Mean Gradient 2 mmHg LVOT VTI 25 cm LVOT VTI/AV VTI Ratio 0.7 LVOT Stroke Volume 80 ml LVOT CO 4.8 l/min LVOT CI 2.4 l/min/m2 Pulmonic Valve Name Value Normal RVOT Doppler RVOT Peak Velocity 84 cm/s RVOT Peak Gradient 3 mmHg PV Doppler PV Peak Velocity 98 cm/s PV Peak Gradient 4 mmHg Mitral Valve Name Value Normal MV Diastolic Function MV E Peak Velocity 89 cm/s MV A Peak Velocity 76 cm/s MV E/A 1.2 MV Decel Time (PW) 236 ms MV Annular TDI MV E/e' (Septal) 8.1 MV E/e' (Lateral) 6.1 MV E/e' (Average) 7.1 Tricuspid Valve Name Value Normal Estimated PAP/RSVP RA Pressure 5 mmHg <=5 Aortic Valve Name Value Normal AV Doppler AV Peak Velocity 159 cm/s AV Peak Gradient 10 mmHg AV Mean Gradient 5 mmHg AV VTI 34 cm AV Area (Cont Eq VTI) 2.4 cm2 >=3.0 AV Area (Cont Eq Carlo) 2.3 cm2 AV DI (Carlo) 0.71 AV Regurgitation 2D LVOT Area 3.2 cm2 Ventricles Name Value Normal LV Dimensions 2D/MM IVS Diastolic Thickness (2D) 0.8 cm 0.6-1.0 LVID Diastole (2D) 4.9 cm 4.2-5.8 LVIW Diastolic Thickness (2D) 0.8 cm 0.6-1.0 LVID Systole (2D) 3.1 cm 2.5-4.0 LVOT Diameter 2.0 cm LV Mass (2D Cubed) 136.71 g 88.00-224.00 LV Mass Index (2D Cubed) 68 g/m2 49-115 Relative Wall Thickness (2D) 0.34 <=0.42 LV Fractional Shortening/Ejection Fraction 2D/MM LV Fractional Shortening (2D) 37 % 25-43 LV EF (2D Teichholz) 66 % LV Diastolic Volume (4C MOD) 105 ml LV EF (4C MOD) 68 % LV Diastolic Volume (2C MOD) 99 ml LV EF (2C MOD) 67 % LV Diastolic Volume (BP MOD) 105 ml 62-150 LV Diastolic Volume Index (BP MOD) 52 ml/m2 34-74 LV Systolic Volume (BP MOD) 33 ml 21-61 LV Systolic Volume Index (BP MOD) 17 ml/m2 11-31 LV EF (BP MOD) 68 % 52-72 LV Diastolic Length (4C) 7.9 cm LV Systolic Length (4C) 6.4 cm LV Stroke Volume (4C MOD) 72 ml Atria Name Value Normal LA Dimensions LA Volume (4C A-L) 26 ml LA Volume (BP A-L) 28 ml RA Dimensions RA Systolic Major [place] Length (4C) 4.7 cm 2.1-2.7 RA Area (4C) 15.0 cm2 <=18.0 Report Signatures
--- OUTSIDE RECORDS SUMMARY | 2025-08-29 17:10 | XMS_ITS | Clinical Summary ---
Author Organization [facility] Address [address] [place] [address] Care Team Providers Care Cable Supervisor Name Role Phone Domo Tello Primary Care Provider [phone] Allergies Active Allergy Reactions Criticality Noted Date [...] insulin 4 times daily 9 Active Insulin Caro, Disposable, 31 gauge x 5/16 Needle USE [...] drink = 0.6 oz pur e alcohol) Feeling Safe Answer Date Recorded Within the last year, have y ou been afraid of your partner or ex-partner? No 01/16/2021 Within the last year, have y ou been humiliated or emotionally abused in other ways by your partner or ex-partner? No Within the last year, have y ou been kicked, hit, slapped, or otherwise physically hurt by your partner or ex-partner? No 01/16/2021 Within the last year, have y ou been raped or forced to have any kind of sexual activity by your partner or ex-partner? No 01/16/2021 Social Connections Answer Date Recorded In a typical week, how many times do you talk on the phone with family, friends, or neighbors? Three times a week 01/16/2021 How often do you get togethe r with friends or relatives? Never 01/16/2021 Attends Latter-Day Services Not on file 01/16 Active Member of Clubs or Organizations Not on f ile 01/16/2021 Attends Club or Organization Meetings Not on oswaldo e 01/16/2021 Are you , , di vorced, , never , or living with a partner? 01/16/2021 Financial Resource Strain Answer Date R ecorded How hard is it for you to pa y for the very basics like food, housing, medical care, and heating? Not hard at all 01/16/2021 Food Insecurity Answer Date Recorded Within the past 12 months, y ou worried that your food would run out before you got the money to buy more. Never true 01/17/20 21 Within the past 12 months, t he food you bought just didn't last and you didn't have money to get more. Never true 01/16/2021 Transportation Needs Answer Date Record ed In the past 12 months, has l ack of transportation kept you from medical appointments or from getting medications? No 01/2021 In the past 12 months, has l ack of transportation kept you from meetings, work, or from getting things needed for daily living? No 01/16/2021 Sex and Gender Information Value Date Recorded Sex Assigned at Not on file Legal Sex Male 3:47 AM FURNACE BRAZER Gender Identity Not on file Sexual Orientation Not on file Last Filed Vital Signs Vital Sign Reading Time Taken Comments Blood Pressure 111/81 01/21/2022 4:03 PM FURNACE BRAZER Pulse 71 01/21/2022 4:03 PM FURNACE BRAZER Temperature 36.4 C (97.6 F) 01/21/2022 4:03 PM FURNACE BRAZER Respiratory Rate 16 08/26/2016 3:11 PM CDT Oxygen Saturation 96% 01/21/2022 4:03 PM FURNACE BRAZER Inhaled Oxygen Concentration - - Weight 81.6 kg (179 lb 14.4 oz) 01/21/2022 4:03 PM FURNACE BRAZER Height 177.8 cm (5' 10) 01/21/2022 4:03 PM FURNACE BRAZER Body Mass Index 25.81 01/21/2022 4:03 PM FURNACE BRAZER Plan of Treatment Health Maintenance Due Date [...] Mcguire MD CHEMISTRY ORDERABLES Fi nal Result EXTERNAL LAB * (ABNORMAL) LIPID PANEL (03/13/2017 [...] ORDERABLES Fi nal Result Performing Organization Address City/[facility]/ZIP Co de Phone Number EXTERNAL LAB from Last 3 Months or Most Recently Relevant to Health Maintenance Insurance [facility] BLUE ACCESS CHOICE [facility] BLUE ACCESS CHOICE Care Teams Cable Supervisor Relationship Specialty Start Date End Date Domo Tello DO [address] [facility] [address] [place] [id number] PCP - General Internal Medicine 01/16/21
--- OUTSIDE RECORDS SUMMARY | 2025-08-29 17:10 | XMS_ITS | Encounter Summary ---
Author Organization [facility] Address [address] [place] [address] Care Team Providers Care Psych Specialist Name Role Phone Dev Sage MD Primary Care Provider Encounter Details Date Type Department Care Team (Late st Contact Info) Description 04/10/2021 Lab Requisition [facility] Care DermPath Lab [address] [place] [address] Shane Mendoza MD [address] [facility] [place] [address] Social History Tobacco Use Types Packs/Day Years Used Date Smoking Tobacco: Never Smokeless Tobacco: Never Alcohol Use Standard Drinks/Week Comments Not Currently 0 (1 standard drink = 0.6 oz pur e alcohol) Sex and Gender Information Value Date Recorded Sex Assigned at Not on file Legal Sex Male 6:20 AM WHIPPER Gender Identity Not on file Sexual Orientation Not on file documented as of this encounter Plan of Treatment Not on file documented as of this encounter Procedures Procedure Name Priority Date/Time Associated Diagnosis Comments DERMATOPATHOLOGY Routine 04/09/2021 3:33 AM CDT documented in this encounter Results * DERMATOPATHOLOGY (04/09/2021 3:33 AM CDT) Case Report Dermatopathology Report Case: [id number] Authorizing Provider: Shane Mendoza MD Collected: 04/09/2021 03:33 AM Ordering Location: [facility] DermPath Lab Received: 04/10/2021 07:48 AM Pathologist: Waleska Ramirez MD Specimen: Skin, right post thigh 4:55 PM CDT DERMATOPATHOLOGY LABORATORY Final Diagnosis Specimen A. 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 Path # [id number]. 4:55 PM CDT DERMATOPATHOLOGY LABORATORY Gross Description Specimen A: Received is one formalin filled container labeled with the patient's name and designated right post thigh. The specimen consists of a shave biopsy measuring [id number]. Jar 0. 4:55 PM CDT DERMATOPATHOLOGY LABORATORY Microscopic Description Specimen A. SKIN, [...] the histologic findings are secondary. 4:55 PM CDT DERMATOPATHOLOGY LABORATORY Disclaimer An external and internal positive and negative controls are appropriate for the histochemical, immunohistochemical and immunofluorescence stain(s) in this case (if any), except where stated explicitly. The performance characteristics of the stain(s) cited in this report were developed and its performance characteristic determined by the Dermatopathology Laboratory at [facility], directed by Dr. Aristeo Ramirez. These tests need not be, and therefore are not, approved by the [place] Food and Drug Administration. The tests are used for clinical purposes. Billing Codes Specimen Charges Stain Charges 14450 1 82382 1 4:55 PM CDT DERMATOPATHOLOGY LABORATORY Embedded Images 4:55 PM CDT DERMATOPATHOLOGY LABORATORY Pathology/Cytolo gy TISSUE SPECIMEN FROM SKIN / Unknown 04/09/2021 3:33 AM CDT 04/10/2021 7:48 AM CDT us Shane Mendoza MD LAB - PATHOLOGY/CYTOLOGY ORDER CHANTAL Final Result DERMATOPATHOLOGY LABORATORY [facility] - Department of Dermatology [facility] Specialized Medicine [address] [place] [address], [address] [phone] documented in this encounter Visit Diagnoses Not on filedocumented in this encounter Care Teams Psych Specialist Relationship Specialty Start Date End Date Dev Sage MD [address] [place] [address] PCP - General 05/17/20 documented as of this encounter
--- OUTSIDE RECORDS SUMMARY | 2025-08-29 17:10 | XMS_ITS | Clinical Summary ---
Author Organization [facility] [employer] Address [address] [place] [address] Care Team Providers Care Flower Grader Name Role Phone Dev Sage MD Primary Care Provider [phone] Source Comments [facility] [employer],non-owned Affiliates and Associated Physician Practices is amultiple site organization consisting of ambulatory clinics and hospital sitesin [place], [place], [place] and [place]. This disclosure is being madepursuant to the Care Everywhere program and may not contain all information available regarding this patient. Last updated 18.[facility] [employer] Allergies Active Allergy Reactions Criticality Noted Date [...] on file Legal Sex Male 6:20 AM BUTTON STATION WORKER Gender Identity Not on file Sexual Orientation [...] of 2) 2013 SCREENING FOR DIABETES 05/21/2020 DEPRESSION SCREENING 11/16/2024 COVID-19 VACCINE (1 - 2023-2 5 season) 2025 INFLUENZA VACCINE (#1) 2025 Respiratory Syncytial Virus [...] complete this topic Insurance [employer] Care Teams Flower Grader Relationship Specialty Start Date End Date Dev Sage MD [address] [facility] [place] [address] PCP - General 05/17/20
--- OUTSIDE RECORDS SUMMARY | 2025-08-29 17:10 | XMS_ITS | Encounter Summary ---
Author Organization [employer] Address [address] [place] [address] Care Team Providers Care Travertine Installer Name Role Phone Domo Tello DO Primary Care Provider [phone] Encounter Details Date Type Department Care Team [...] on file Legal Sex Male 3:47 AM LADLE REPAIRER Gender Identity Not on file Sexual Orientation Not on file documented as of this encounter Plan of Treatment Not on file documented as of this encounter Visit Diagnoses Diagnosis Abdominal pain, epigastric- Primary documented in this encounter Care Teams Travertine Installer Relationship Specialty Start Date End Date Domo Tello DO [address] [facility] [address] [place] [address] PCP - General Internal Medicine 01/16/21 documented as of this encounter
--- OUTSIDE RECORDS SUMMARY | 2025-08-29 17:10 | XMS_ITS | Encounter Summary ---
Author Organization [facility] Address [address] [place] [address] Care Team Providers Care Lay Out Machine Operator Name Role Phone Domo Tello DO Primary Care Provider [phone] Encounter Details Date Type Department Care Team (Latest Contact Info) Description 04/27/2002 Outpatient Historical [facility] Lynch, Matthew Coulter MD NO ADDRESS ON FILE OTHER MALAISE AND FATIGUE (Primary Dx) Social History Tobacco Use Types Packs/Day Years Used Date Smoking Tobacco: Never Assessed Sex and Gender Information Value Date Recorded Sex Assigned at Not on file Legal Sex Male 3:47 AM ABSORPTION PLANT OPERATOR HELPER Gender Identity Not on file Sexual Orientation Not on file documented as of this encounter Plan of Treatment Not on file documented as of this encounter Visit Diagnoses Diagnosis Other malaise and fatigue- Primary documented in this encounter Care Teams Lay Out Machine Operator Relationship Specialty Start Date End Date Domo Tello DO [address] [facility] [address] [place] [address] PCP - General Internal Medicine 01/16/21 documented as of this encounter
--- OUTSIDE RECORDS SUMMARY | 2025-08-29 17:10 | XMS_ITS | Encounter Summary ---
Author Organization [email or web address] [facility] Address [address] [place] [address] Care Team Providers Care Credit Collector Name Role Phone Domo Tello DO Primary Care Provider Encounter Details Date Type Department Care Team (Latest Contact Info) Description 09/03/2006 Outpatient Historical HIS [facility] Godfrey, Bonilla Medellin MD NO ADDRESS ON FILE DM w/o Complication Type I, Uncontrolled (Primary Dx) Social History Tobacco Use Types Packs/Day Years Used Date Smoking Tobacco: Never Assessed Sex and Gender Information Value Date Recorded Sex Assigned at Not on file Legal Sex Male 3:47 AM SUPERVISOR MIXING Gender Identity Not on file Sexual Orientation [...] Primary documented in this encounter Care Teams Credit Collector Relationship Specialty Start Date End Date Domo Tello DO [address] [facility] [address] [facility] [address] [place] [address] PCP - General Internal Medicine 01/16/21 documented as of this encounter
--- OUTSIDE RECORDS SUMMARY | 2025-08-29 17:10 | XMS_ITS | Encounter Summary ---
Author Organization [employer] Address 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 [place], [place] [address] Admit Date: 02/21/2008 MAIN GAUTHIER Sex: M Admit Prov: ER, AUTHORIZED P Date: 1965 Primary Care Prov: ELIZ BOOTH CMRN: [id number] Room: ER-A SSN: [id number] IMAGING SERVICES Ordering Prov: N/A Accession Number: [id number] Interpretation CT ABDOMEN AND PELVIS WITH IV [...] AMK Procedure Note Provider, Historical - 02/22/2008 [place] [address] [place], [place] [address] Admit Date: 02/21/2008 MAIN GAUTHIER Sex: M Admit Prov: ERIKA GOLDEN Date: 1965 Primary Care Prov: ELIZ BOOTH CMRN: [id number] Room: [facility] SSN: [id number] IMAGING SERVICES Ordering Prov: N/A Interpretation CT [...] 7:25 PM CDT) CLARITY UA Clear Clear [facility] PROTEIN UA Negative Negative [facility] BILIRUBIN UA Negative Negative [facility] LEUKOCYTE ESTERASE UA Negative Negative [facility] SPECIFIC GRAVITY UA 1.005 1.001 - 1.035 [facility] BLOOD UA Negative Negative [facility] GLUCOSE UA Negative Negative [facility] COLOR UA Colorless [facility] NITRITE UA Negative Negative [facility] UROBILINOGEN UA <1 <=1 mg/dL [facility] PH UA 6.0 5.0 - 8.0 [facility] KETONES UA Negative Negative [facility] Urine specimen (specimen) 02/21/2008 7:25 PM CDT 02/21/2008 7:29 PM CDT Ravinder Knott DO URINE ORDERABLES Final Result Performing Organization Address [facility] Co de Phone Number [facility] [address] [place], [place] [address] * C-REACTIVE PROTEIN (02/21/2008 6:45 PM CDT) Pathologist [facility] CRP 0.3 0.0 - 0.8 mg/dL [facility] Blood specimen (specimen) 02/21/2008 6:45 PM CDT 02/21/2008 6:51 PM CDT Ravinder Knott DO CHEMISTRY ORDERABLES Final Re sult Performing Organization Address [facility]/ZIP Co de Phone Number [facility] [address] [facility] [place] [address] * (ABNORMAL) COMPREHENSIVE METABOLIC PANEL (02/21/2008 6:45 PM CDT) ALKALINE PHOSPHATASE 65 40 - 129 U/L [facility] CO2 27 22 - 30 mmol/L [facility] BILIRUBIN TOTAL 0.3 0.2 - 1.0 mg/dL [facility] POTASSIUM 3.7 3.5 - 4.9 mmol/L [facility] TOTAL PROTEIN 7.8 6.3 - 8.6 g/dL [facility] GLUCOSE 117(H) 65 - 99 mg/dL [facility] AST 36 12 - 38 U/L [facility] BUN 17 6 - 20 mg/dL [facility] CALCIUM 8.9 8.4 - 10.2 mg/dL [facility] ALBUMIN 4.6 3.4 - 4.8 g/dL [facility] CHLORIDE 102 96 - 108 mmol/L [facility] CREATININE 1.13 0.67 - 1.17 mg/dL [facility] ALT 27 0 - 41 U/L [facility] SODIUM 140 135 - 145 mmol/L [facility] GFR, >60 >=60 mL/min/1. 7 sq meter [facility] GFR >60 >=60 mL/min/1. 7 sq meter [facility] Comment: Estimated GFR rate interpretative information for both Americans and non- Americans is available on the [facility] Intranet at: [email or web address] Select: Lab Policies and Procedures Select: Reference Ranges - GFR Blood specimen (specimen) 02/21/2008 6:45 PM CDT 02/21/2008 6:51 PM CDT us Ravinder Knott DO CHEMISTRY ORDERABLES Edited [facility] [address] [place] [address] * CBC WITH DIFFERENTIAL (02/21/2008 6:45 PM CDT) HEMOGLOBIN 14.1 13.6 - 16.5 g/dL [facility] RDW 12.3 11.5 - 14.5 % [facility] WBC 6.0 4.0 - 9.8 K/uL [facility] MCH 28.5 27.2 - 32.6 pg [facility] MPV 10.2 9.3 - 12.4 fL [facility] HEMATOCRIT 41.7 40.0 - 48.0 % [facility] RDW-STDEV 37.7 37.1 - 48.7 fL [facility] RBC 4.94 4.50 - 5.40 M/uL [facility] MCHC 33.8 31.5 - 35.5 % [facility] MCV 84.4 82.0 - 99.0 fL [facility] PLATELETS 255 140 - 350 K/uL [facility] LYMPHOCYTES 31 16 - 45 % [facility] LYMPHOCYTE ABSOLUTE 1.84 0.70 - 4.50 K/uL [facility] EOSINOPHIL ABSOLUTE 0.16 0.00 - 0.70 K/uL [facility] BASOPHILS 2 0 - 2 % [facility] MONOCYTES 6 3 - 13 % [facility] NEUTROPHILS 59 45 - 70 % [facility] NEUTROPHIL ABSOLUTE 3.51 1.90 - 7.00 K/uL [facility] EOSINOPHILS 3 0 - 7 % [facility] MONOCYTE ABSOLUTE 0.37 0.10 - 1.30 K/uL [facility] BASOPHILS ABSOLUTE 0.09 0.00 - 0.20 K/uL [facility] Blood specimen (specimen) 02/21/2008 6:45 PM CDT 02/21/2008 6:51 PM CDT Ravinder Knott DO HEMATOLOGY ORDERABLES Edited INTERFACE SYSTEM Refer to clinic/hospital department [facility] [address] [place] [address] documented in this encounter Visit Diagnoses Not on filedocumented in this encounter Care Teams Solar Sales Associate Relationship Specialty Start Date End Date Domo Tello DO [address] [facility] [address] [place] [address] PCP - General Internal Medicine 01/16/21 documented as of this encounter
--- OUTSIDE RECORDS SUMMARY | 2025-08-29 17:10 | XMS_ITS | Clinical Summary ---
Author Organization [facility] Address [address] [place] [address] Care Team Providers Care Wash Tank Tender Name Role Phone Domo Tello DO Primary Care Provider [phone] Allergies Active Allergy Reactions Criticality Noted Date Comments Penicillins Other (See comments) Reaction: Unknown, Prednisone Medications insulin syringe-needle U-100 0.5 mL 31 gauge x 5/16 syringe Use to inject insulin 4 times daily 400 each 1 02/17/20 19 Active alcohol swabs (ALCOHOL PADS) pads, medicated Use as directed PRN 500 each 05/05/20 19 Active blood-glucose sensor device Use for BG monitoring 2 each 06/30/20 22 Active blood-glucose transmitter (Dexcom G6 Transmitter) device Use for BG monitoring 1 each 3 06/30/20 22 Active sildenafiL (VIAGRA) 100 mg tablet TAKE ONE TABLET BY MOUTH DAILY NEEDED 10 tablet 11 04/05/20 25 Active sildenafiL (VIAGRA) 100 mg tablet TAKE ONE TABLET BY MOUTH DAILY NEEDED 10 tablet 04/05/20 25 Active blood-glucose,rec eiver,cont (Dexcom G6 Welcome Desk Agent) misc Use for BG monitoring 1 each 07/26/20 25 Active insulin glargine (TOUJEO) 300 unit/mL (1.5 mL) pen for injectionIndicati ons:Type 1 diabetes mellitus with hyperglycemia (HCC) Inject 35 Units under the skin nightly 15 mL 11 07/26/20 25 Active insulin lispro (HumaLOG) 100 unit/mL pen for injectionIndicati ons:Type 1 diabetes mellitus with hyperglycemia (HCC) INJECT 10 UNITS WITH MEALS PER PRESCRIBER SSI MAX 30 UNITS PERDAY 15 mL 11 07/26/20 25 Active pen needle, diabetic (TRUEplus Pen Needle) 31 gauge x 5/16 needle Use to inject insulin 3-4 times daily. 200 each 3 07/26/20 25 Active blood-glucose meter miscIndications:T ype 2 diabetes mellitus with hyperglycemia, with long-term current use of insulin (HCC) Use to check blood sugar 3 times a day. 1 each 08/16/20 25 Active lancets 33 gauge miscIndications:T ype 2 diabetes mellitus with hyperglycemia, with long-term current use of insulin (HCC) Use to check blood sugar 3 times as instructed in case of CGM failure. 300 each 2 08/16/20 25 Active blood glucose diagnostic stripIndications: Type 2 diabetes mellitus with hyperglycemia, with long-term current use of insulin (HCC) Use to check blood sugar 3 times as instructed in case of CGM failure. 300 each 2 08/16/20 25 Active blood glucose diagnostic (OneTouch Ultra Test) stripIndications: Type 1 diabetes mellitus with hyperglycemia (HCC) USE TO CHECK SUGARS up to 10 times daily 400 strip 3 07/26/20 25 025 Discontin ued(Alter reji therapy) Active Problems Problem Noted Date Diagnosed Date Statin medication declined by patient 12/31/2022 Assessment & Plan (12/31/2022 3:54 PM VICE PRESIDENT FOR PHILANTHROPY): Pt not interested in statins Elevated vitamin B12 level 03/06/2021 Chronic anemia 01/16/2021 Renal cyst 09/21/2020 Depression with anxiety 08/03/2019 Assessment & Plan (08/03/2019 4:20 PM CDT): Denies suicidal thoughts He is doing counseling with marker machine at [facility] I offered him antidepressants; he will think about it. Mixed diabetic hyperlipidemi a associated with type 1 diabetes mellitus 03/24/2018 Assessment & Plan (04/13/2024 2:06 PM CDT): Chronic, uncontrolled Update lipid profile The patient is still refusing use of statin Assessment & Plan (09/07/2023 4:14 PM CDT): Chronic, uncontrolled Patient again refusing statin therapy Assessment & Plan (12/31/2022 3:53 PM VICE PRESIDENT FOR PHILANTHROPY): Low cholesterol low fat diet. Pt not interested in statin. Assessment & Plan (06/30/2022 4:26 PM CDT): Role of a statin in lowering cardiovascular risk in diabetic patient was explained again Patient still declines the use of any statin therapy Lipid profile requested Assessment & Plan (12/02/2021 4:18 PM VICE PRESIDENT FOR PHILANTHROPY): Due to the high risk of of [...] statins. Assessment & Plan (12/28/2019 3:45 PM VICE PRESIDENT FOR PHILANTHROPY): Goal of treatment , LDL cholesterol less [...] statin. Assessment & Plan (09/29/2018 3:53 PM VICE PRESIDENT FOR PHILANTHROPY): Due to the high risk of of [...] 130. Assessment & Plan (12/31/2022 3:54 PM VICE PRESIDENT FOR PHILANTHROPY): Hba1c was Lab Results Component Value Date [...] sent Assessment & Plan (12/02/2021 4:19 PM VICE PRESIDENT FOR PHILANTHROPY): Hba1c was Lab Results Component Value Date [...] DEXCOM Assessment & Plan (12/28/2019 3:47 PM VICE PRESIDENT FOR PHILANTHROPY): Hba1c was Lab Results Component Value Date [...] discussed. Assessment & Plan (10/05/2018 11:57 AM VICE PRESIDENT FOR PHILANTHROPY): Your Hba1c today was: Lab Results Component Value Date HGBA1C 8.0 09/29/2018 meaning a 3 month average sugar of : 180 Your goal hba1c is under 7.0 to prevent residential diabetes complications ( eye , kidney and [...] provided. Assessment & Plan (10/19/2017 1:55 PM VICE PRESIDENT FOR PHILANTHROPY): A1c 7.8. Dicussed concept of insulin pump [...] 09/05/2013 Overview (02/20/2017): BPH (benign prostatic hyperplasia) Encounters Date Type Department Care Team Description 08/16/2025 Telephone [facility] [address] [address] Esther Yu MD Meter, Test Strips, Lancets 07/26/2025 3:00 PM CDT Office Visit [facility] [address] [address] Esther Yu MD Type 1 diabetes mellitus with hyperglycemia (HCC) (Primary Dx) from Last 3 Months Medical History Medical History Date Comments Hx Other Medical left elbow surg saadia Rash Diabetes mellitus type I Family History Medical History Relation Name Comments [...] on file Legal Sex Male 5:58 PM VICE PRESIDENT FOR PHILANTHROPY Gender Identity Not on file Sexual Orientation Straight 01/09/2025 3: 20 PM VICE PRESIDENT FOR PHILANTHROPY Obstetrics History Last Filed Vital Signs Vital Sign Reading Time Taken Comments Blood Pressure 90/60 07/26/2025 3:11 PM CDT Pulse 68 07/26/2025 3:11 PM CDT Temperature - - Respiratory Rate 12 07/26/2025 3:11 PM CDT Oxygen Saturation - - Inhaled Oxygen Concentration - - Weight 81.8 kg (180 lb 6.4 oz) 07/26/2025 3:11 P M CDT Height 177.8 cm (5' 10) 07/26/2025 3:11 PM CDT Body Mass Index 25.88 07/26/2025 3:11 PM CDT Plan of Treatment Health Maintenance [...] 12/31/2023 12/31/2022, 11/16, 01/30/2021, Additional history exists Lipid Panel 04/13/2025 04/13/2024, 12/0 01/2022, 12/02/2021, Additional history exists eGFR 04/13/2025 04/13/2024, 12/0 01/2022, 01/30/2021, Additional history exists Covid-19 Vaccine (3 - 2024-2 6 season) 2025 10/07/2021, 09/16/2021 Influenza Vaccine (#1) 2025 Albumin Creatinine Ratio, Urine 01/09/2026 01/09/2025, 09/07/2023, 06/30/2022, Additional history exists Depression Screening 01/09/2026 01/09/2025, 12/31/2022, 06/30/2022, Additional history exists Hemoglobin A1C 01/23/2026 07/26/2025, 12/18, 04/13/2024, Additional history exists Procedures Procedure Name Priority Date/Time Associated Diagnosis Comments POCT GLUCOSE Routine 07/26/2025 3:13 PM CDT Type 1 diabetes mellitus with hyperglycemia (HCC) POCT HEMOGLOBIN A1C Routine 07/26/2025 3 :13 PM CDT Type 1 diabetes mellitus with hyperglycemia (HCC) ALBUMIN CREATININE RATIO, URINE Routine 01/09/2025 4:13 PM VICE PRESIDENT FOR PHILANTHROPY Type 1 diabetes mellitus with hyperglycemia (HCC) EGFR Routine 04/13/2024 2:06 PM CDT Type 1 diabetes mellitus with hyperglycemia (HCC) LIPID PANEL Routine 04/13/2024 2:06 PM CDT Type 1 diabetes mellitus with hyperglycemia (HCC) TSH Routine 10/18/2022 10:12 AM VICE PRESIDENT FOR PHILANTHROPY Type 1 diabetes mellitus with hyperglycemia (HCC) DIABETIC EYE EXAM Routine 03/14/2022 from Last 3 Months or Most Recently Relevant to Health Maintenance Results * (ABNORMAL) POCT hemoglobin A1c (07/26/2025 3:13 PM CDT) Hemoglobin A1C, POC 8.5(A) 4.0 - 5.6 % Comment:None Capillary blood 07/26/2025 3 :13 PM CDT Result Garrett Yu MD POINT OF CARE TEST ORDERABLES Fi nal Result * (ABNORMAL) POCT glucose (07/26/2025 3:13 PM CDT) Glucose Blood, POC 221 Normal Fasting 70 - 100, Random <200 mg/dL Comment:None Blood 07/26/2025 3:13 PM CDT Result Garrett Yu MD POINT OF CARE TEST ORDERABLES Fi nal Result * Albumin Creatinine Ratio, Urine (01/09/2025 4:13 PM VICE PRESIDENT FOR PHILANTHROPY) Albumin Ur <12.0 mg/L Comment: Collection date/time [...] collection date/time: 15:19:00. Urine 01/09/2025 4:13 PM VICE PRESIDENT FOR PHILANTHROPY 01/10/2025 6:58 PM VICE PRESIDENT FOR PHILANTHROPY Result Garrett Yu MD LAB URINE ORDERABLES Edited Resu lt - Final [address] [place] [address] * eGFR (04/13/2024 2:06 PM CDT) eGFR [...] LAB BLOOD ORDERABLES Final Resul t [address] [place] [address] * (ABNORMAL) Lipid panel (04/13/2024 [...] last revised on 2018. Chol/HDL ratio 4 CERNER CH Blood 04/13/2024 2:06 PM CDT 04/13/2024 5:18 PM CDT Esther Yu MD LAB BLOOD ORDERABLES Final Resul t [address] [place] [address] * TSH (10/18/2022 10:12 AM VICE PRESIDENT FOR PHILANTHROPY) Scribed TSH 0.83 0.36 - 3.74 mcU/mL EXTERNAL LAB Blood 10/18/2022 10:1 2 AM VICE PRESIDENT FOR PHILANTHROPY Esther Yu MD LAB BLOOD ORDERABLES Final Resul t EXTERNAL LAB * Diabetic Eye Exam (03/14/2022) Historical Provider HEALTH MAINTENANCE Edited Result - Final from Last 3 Months or Most Recently Relevant to Health Maintenance Insurance [employer] [facility] BLUE ACCESS CHOICE [place] Care Teams Wash Tank Tender Relationship Specialty Start Date End Date Domo Tello DO PCP - General Internal Medicine 01/30/21
== END 2025-08-29 15:36 | disposition home or self-care (01) ==
LOC: CHSIMG 15:36
PROVIDERS: PCP Internal Medicine; Visit Provider Internal Medicine
DX: R06.09 Other forms of dyspnea (principal); R01.1 Cardiac murmur, unspecified
CPT/HCPCS: 93306